=== PATIENT | female | born 1985 | race Caucasian/White ===

== ENCOUNTER 2018-04-16 17:10 | Emergency (ER) | payer BC, SELFPAY ==
[2018-04-16] VITALS (18 sets, daily range): BP systolic 105–152; BP diastolic 66–93; PULSE 64–106; RESP 11–27; TEMP 36.2–37.5; O2SAT 95–100
--- NOTE | 2018-04-16 17:28 | W.ED.GENAD ---
Discharge Plan Disposition Patient Disposition: HOME Discharge Details Chief Complaint: Allergic Clinical Impression: Bee sting Reason For Visit: BEE STING Primary Care Provider: Sally Owens ED Provider: Nick Styles Home Meds and New Rx's Prescriptions: New prednisone 20 mg tablet 60 mg PO DAILY 3 Days Qty: 9 RF: 0 Continue epinephrine [EpiPen 2-Marcial] 0.3 MG/0.3 ML auto-injector 0.3 mg IM PRN PRN (Reason: Allergy Symptoms) Qty: 1 RF: 0 Discharge Instructions Additional Instructions: follow up with your primary care provider within a 2 weeks if you have itching you can take benadryl return to the emergency department if you have difficulty breathing, severe abdominal pain, persistent vomit, or throat swelling after using your epi pen Discharge Data Discharge Physician: Nick Styles Medical Decision Making MDM Narrative Medical decision making narrative: 33 yo female who denies chornic medical problems comes in with chief complaint of bee sting. She states it happened tonight and started to have itching in her arm pits. She has no diffuse urticaria, clear lungs, no gi symptoms and no throat swelling and no stridor or drooling so doubt anaphylaxis. Will give steroids as she already took benadryl and monitor pt remains stable at this time, no respiratory or gi symptoms. Will d/c, she states her epi pen is so will prescribe this and have her f/u with pcp, return precautions Differential Diagnosis been sting, allg rxn, anaphylaxis HPI - General Adult General Mode of arrival: ambulatory. Date/Time Provider Initiated Documentation: 04/16/18 17:27. Limitations to Documentation: no limitations. Information obtained by: patient. History of Present Illness 33 year old F presents to the emergency department with the chief complaint of bee sting to right forearm, described as moderate, with intensity rated at 3. Quality is described as other (itching), and is localized to the right and upper extremity. Patient started experiencing this hour(s) (1) and it has been constant. No relieving factors improve symptom(s), No exacerbating factors reported . Patient notes no other symptoms.. Patient did receive the following treatments prior to arrival, other (50mg benadryl) Related Data Previous Rx's Medication Instructions Recorded epinephrine [EpiPen 2-Marcial] 0.3 mg IM PRN PRN #1 ml 04/16/18 prednisone 60 mg PO DAILY 3 Days #9 tab 04/16/18 Allergies Allergy/AdvReac Type Severity Reaction Status Date / Time Sulfa (Sulfonamide AdvReac Intermediate Hives Unverified 04/16/18 17:23 Antibiotics) BEE STINGS Allergy Unknown Uncoded 04/16/18 17:23 General Stated Complaint: Allergic DANNA: 3 Review of Systems Review of Systems All systems reviewed & are unremarkable except as noted in HPI and below Constitutional Denies chills, Denies fever(s) and Denies weakness Eyes Patient Denies loss of vision ENT Denies change in voice Cardiovascular Denies chest pain and Denies dyspnea Respiratory Denies dyspnea Gastrointestinal Denies abdominal pain, Denies nausea and Denies vomiting Genitourinary Denies dysuria Musculoskeletal Denies joint swelling Neurologic Denies loss of vision and Denies weakness Psychiatric Denies depression Endocrine Denies cold intolerance and Denies heat intolerance PFSH Medical History Ashkenazi Christian ancestry Social History Smoking/Tobacco Use Status: Current-Occasional Exam Const General: no acute distress Orientation: alert HENMT Head: normal to inspection Ears: external ears normal General nose exam: external nose normal Mouth: moist mucous membranes Eyes General: appearance normal, both eyes and all related structures Neck Neck: normal visual inspection Resp Effort & Inspection: normal respiratory effort and able to speak in complete sentences Cardio Rate: regular rate Skin General skin exam: other (2cm mild erythema to posterior mid right forearm where bee stung her) Neuro General: alert and oriented x3 Extrem General: normal to inspection Psych Mental Status: mental status grossly normal Course Vital Signs Temperature 37.5 C 04/16/18 17:10 Pulse 94 H 04/16/18 17:10 Respiratory Rate 16 04/16/18 17:10 Blood Pressure 152/93 H 04/16/18 17:10 Pulse Oximetry 97 04/16/18 17:10 Temperature 37.5 C 04/16/18 17:10 Pulse 94 H 04/16/18 17:10 Respiratory Rate 16 04/16/18 17:10 Blood Pressure 152/93 H 04/16/18 17:10 Pulse Oximetry 97 04/16/18 17:10
[2018-04-16] MEDS: Dexamethasone 10 MG/ML VIAL (17:35)
--- NOTE | 2018-04-16 17:40 | NUR.NOTE ---
Nursing Note:10 mg dexamethasone liquid given orally per MD order. Medication did not cross over, so overrode. Medication did not show up on patient's MAR, so unable to scan. Administered. Patient given call morales and advised to report any change in condition immediately.
== END 2018-04-16 19:13 | disposition home or self-care (01) ==
PROVIDERS: Emergency Provider Emergency Medicine; PCP Naturopath
DX: T63.441A Toxic effect of venom of bees, accidental (unintentional), initial encounter (principal); L29.9 Pruritus, unspecified; Z91.030 Bee allergy status
CPT/HCPCS: 99283; J1100

== ENCOUNTER 2018-06-11 15:01 | Outpatient (CLI) | payer SELFPAY ==
--- NOTE | 2018-06-11 16:06 | DI.US_ITS ---
SYMPTOM/DIAGNOSIS: ? ECTOPIC, CONFIRM IUP, ? AGE OBSTETRICAL ULTRASOUND: Routine examination was performed. There is a single living intrauterine gestation. Estimated sonographic age is 7 weeks 2 days based on crown/rump length. The yolk sac was visualized and is unremarkable. heart rate is 153 beats/minute, The right ovary was visualized transabdominally and is grossly unremarkable. The left ovary was not identified during the examination. The maternal left renal pelvis is mildly prominent. IMPRESSION: Single living intrauterine gestation, estimated sonographic age is 7 weeks 2 days. Many abnormalities cannot be diagnosed. A normal exam does not exclude a congenital anomaly. Radiology No. [id number] LMP: Aug 2016 patient . Exam Date: 06/11/18 [facility] wks days on EDC ([facility]) Confirmed: HISTORY: ---- PREDICTED GESTATIONAL AGE NUMBER weeks with a range of week to weeks. 1 Determined by___1STUS___LMP___HISTORY Info. pertaining to fetus # PLACENTA PRESENTATION Grade Cephalic___ Anterior___Posterior___ Breech____ Right Left Transverse(head right___ Fundal___Low-lying___Previa___ Transverse(head left___ Varying BIOMETRY AMNIOTIC FLUID BPD: mm weeks Normal HC: mm weeks Oligo Polyhydramnios AC: mm weeks FL: mm weeks AMNIOTIC FLUID INDEX >26 WK CRL: 12 mm 7 +2 weeks Cisterna Magna: mm CI: RUQ: LUQ Cerebellum: cm EFW: grams Percentile RLQ: LLQ Total: cms Composite AGE= yolk sac 4 mm, 7+2 wks EDC by US__01/26/2019 BIOPHYSICAL PROFILE ANATOMY IDENTIFIED SCORE 0/2 Heart: 4-Chamber___Rate:BPM_153____ LVOT: RVOT: Amniotic Fluid(>2cms)____ Stomach: Kidneys: Respirations (>30 secs) Bladder: Post. Fossa: Body Flex/Extension 3 vessel cord: Ventricles: cord insertion: Lips:____ Extremity Flex/Extension spinal morphology: Nose: Total Score= Palate: NS=not seen
== END 2018-06-11 15:21 ==
PROVIDERS: PCP Naturopath; Visit Provider Nurse Practitioner Adult Health
DX: Z34.91 Encounter for supervision of normal pregnancy, unspecified, first trimester (principal)
CPT/HCPCS: 76817

== ENCOUNTER 2018-09-07 00:37 | Outpatient (CLI) | payer BC, SELFPAY ==
--- NOTE | 2018-09-07 13:00 | DI.US_ITS ---
SYMPTOMS/DIAGNOSIS: KELLI 01/26/19, UNKNOWN LAST MENSTRUAL PERIOD, , ROUTINE ANATOMY SCAN OB ULTRASOUND: Many abnormalities cannot be diagnosed. A normal exam does not exclude a congenital anomaly. Radiology No. [id number] LMP: 04/21/18 Exam Date: 09/07/18 [facility] wks days on EDC ([facility]) 01/26/19 Confirmed: HISTORY: PREDICTED GESTATIONAL AGE NUMBER 19+6 weeks with a range of 18+6 weeks to 20+6 weeks. 1 Determined by_X__1ST US___LMP___HISTORY PLACENTA PRESENTATION Grade 0-I Cephalic___ Anterior___Posterior_X__ Breech____ Right Left Transverse(head right___ Fundal___Low-lying_X__Previa___ Transverse(head left___ Varying__X____ BIOMETRY AMNIOTIC FLUID BPD: 47 mm 20+1 weeks Normal HC: 183 mm 20+5 weeks AC: 152 mm 20+3 weeks FL: 32 mm 19+6 weeks AMNIOTIC FLUID INDEX >26 WK CRL: mm weeks Cisterna Magna: 3.6 mm CI: 82 RUQ: LUQ Cerebellum: 2.1 cm EFW: 339 grams Percentile: 79th RLQ: LLQ Total: cms Composite AGE= 20+2 wks EDC by US: 01/23/19 BIOPHYSICAL PROFILE ANATOMY IDENTIFIED SCORE 0/2 Heart: 4-Chamber_X__Rate:BPM 149 LVOT:____X RVOT:__X Amniotic Fluid(>2cms)____ Stomach:___X____ Kidneys:___X____ Respirations (>30 secs) Bladder:___X Post. Fossa:___X Body Flex/Extension 3-vessel cord:___X____Ventricles:____X Cord insertion:__X___ Lips:__X__ Extremity Flex/Extension Spinal morphology:___X Nose:__X__ Total Score= Palate:___X____ NS=not seen COMMENTS: The fetus was variable position during the exam. The placenta is posterior and low lying, measuring 2 cm from the internal os. The biometric measurements correspond to 20 weeks 2 days and an EDC of January,. The amount of amniotic fluid appears normal. No abnormalities are seen. IMPRESSION: Borderline low-lying placenta.
== END 2018-09-07 00:57 ==
PROVIDERS: PCP Naturopath; Visit Provider Midwife
DX: Z34.92 Encounter for supervision of normal pregnancy, unspecified, second trimester (principal); O44.42 Low lying placenta NOS or without hemorrhage, second trimester
CPT/HCPCS: 76805

== ENCOUNTER 2019-03-21 18:53 | Emergency (ER) | payer BC, SELFPAY ==
--- NOTE | 2019-03-21 19:52 | NUR.NOTE ---
Nursing Note:pt was sitting in lobby not sure if she wanted to be seen because she was starting to feel better. Pt was mowing in tight jeans today and got into something that she had an allergic reaction to. Pt took cold shower at home and 75 mg of benadryl. Pt has welts on legs and arms and initially face. pt denies SOB or any swelling in mouth or throat at this time. pt is sitting in lobby with and 8 month old. This nurse saw pt x 2 over the 45 min she was sitting there deciding and welts were getting better. Pt left without being triage or seen. pt was speaking in full sentences and other than itching no apparent distress.
== END 2019-03-21 19:52 | disposition other institution (70) ==
LOC: ER 19:09
PROVIDERS: Emergency Provider Physician Assistant; PCP Naturopath
DX: Z53.21 Procedure and treatment not carried out due to patient leaving prior to being seen by health care provider (principal)

== ENCOUNTER 2020-10-09 03:10 | Outpatient (CLI) | payer BC, SELFPAY ==
[2020-10-09 11:59] LABS: Hemoglobin A1C 5.1 % (<5.7)
[2020-10-09 12:43] LABS: Calculated LDL 118 mg/dL (<100); Cholesterol 220 mg/dL (<200); HDL Cholesterol 64 mg/dL (40-60); Triglyceride 194 mg/dL (<150)
== END 2020-10-09 03:11 | disposition home or self-care (01) ==
LOC: LBO 03:10
PROVIDERS: PCP Naturopath; Visit Provider Naturopath
DX: Z00.00 Encounter for general adult medical examination without abnormal findings (principal); Z13.220 Encounter for screening for lipoid disorders; Z13.1 Encounter for screening for diabetes mellitus
CPT/HCPCS: 36415; 80061; 83036

== ENCOUNTER 2023-01-09 02:15 | Outpatient (CLI) | payer BC, SELFPAY ==
[2023-01-09 14:35] LABS: Abs Immature Grans 0.02 10^3/uL (0.0-0.06); Absolute Basophil Count 0.04 10^3/uL (0.0-0.2); Absolute Eosinophil Count 0.14 10^3/uL (0.0-0.7); Absolute Monocyte Count 0.57 10^3/uL (0.1-0.8); Absolute Neutrophil Count 6.21 10^3/uL (1.2-6.7); Basophils % 0.5; Eosinophils % 1.6; HGB 12.9 g/dL (11.2-15.7); Immature Grans % 0.2; Lymphocytes % 20.5; MCHC 33.1 % (32.0-36.0); MCV 82 fL (80-95); MPV 9.9 fL (8.0-11.0); Monocytes % 6.5; Neutrophils % 70.7; Platelet Count 230 10^3/uL (130-400); RBC 4.77 10^6/uL (3.93-5.22); RDW 11.9 % (11.7-14.6); RDW-SD 35.5 fL; WBC 8.78 10^3/uL (4.4-10.8)
[2023-01-12 09:28] LABS: Hepatitis B Surface Ag Negative (Negative)
[2023-01-12 09:53] LABS: Varicella IgG Antibody Positive (See Note)
[2023-01-12 09:56] LABS: Rubella IgG Ab (UVM) Positive (See Note)
[2023-01-12 10:17] LABS: HIV-1/2 Ag & Ab Screen Negative (Negative)
[2023-01-12 10:30] LABS: Hepatitis C Ab w Rflx HCV PCR Negative (Negative)
[2023-01-13 19:52] LABS: Syphilis IgG w/Reflex Nonreactive (Nonreactive)
== END 2023-01-09 02:16 | disposition home or self-care (01) ==
LOC: LBO 02:15
PROVIDERS: PCP Naturopath; Visit Provider Advanced Practice Midwife
DX: Z34.91 Encounter for supervision of normal pregnancy, unspecified, first trimester (principal); Z3A.11 11 weeks gestation of pregnancy; Z33.3 Pregnant state, gestational carrier
CPT/HCPCS: 36415; 86787; 86803; 86850; 86900; 86901; 87340; 87389; 85025; 86762; 86780

== ENCOUNTER 2023-01-09 14:32 | Outpatient (REF) | payer BC, SELFPAY ==
[2023-01-09 17:31] LABS: *AMPHETAMINES SCREEN URINE Negative (Negative); *BARBITURATES SCREEN URINE Negative (Negative); *BENZODIAZEPINES SCREEN URINE Negative (Negative); Cannabinoids THC Negative (Negative); Cocaine Screen,Urine Negative (Negative); METHADONE URINE SCREEN Negative (Negative); OPIATES URINE SCREEN Negative (Negative)
[2023-01-09 17:32] LABS: Tricyclic Antidepressants Negative (Negative)
[2023-01-19 03:18] LABS: Buprenorphine Negative ng/mL (Cutoff: 5.0); Norbuprenorphine Negative ng/mL (Cutoff: 2.5)
== END 2023-01-09 14:33 | disposition home or self-care (01) ==
LOC: LBN 14:32
PROVIDERS: Advanced Practice Midwife; PCP Naturopath; Visit Provider Obstetrics & Gynecology Gynecology
DX: Z34.91 Encounter for supervision of normal pregnancy, unspecified, first trimester (principal)
CPT/HCPCS: 80307; 80348; 87077; 87086; 87186

== ENCOUNTER 2023-01-21 03:27 | Outpatient (CLI) | payer BC, SELFPAY ==
[2023-01-21 14:32] LABS: Panorama Kit Sent via Fed Ex
[2023-01-30 14:32] LABS: Specimen WB Whole Blood
[2023-02-02 23:37] LABS: Result Summary NEGATIVE; Specimen WB Whole Blood
== END 2023-01-21 03:28 | disposition home or self-care (01) ==
LOC: LBO 03:27
PROVIDERS: PCP Naturopath; Visit Provider Advanced Practice Midwife
DX: Z34.90 Encounter for supervision of normal pregnancy, unspecified, unspecified trimester (principal); O99.891 Other specified diseases and conditions complicating pregnancy; E84.9 Cystic fibrosis, unspecified
CPT/HCPCS: 36415; 81220; 81222; 81329

== ENCOUNTER 2023-02-05 11:05 | Outpatient (REF) | payer BC, SELFPAY ==
[2023-02-06 13:25] LABS: Chlamydia Result Negative (Negative); GC Result Negative (Negative)
== END 2023-02-05 11:06 | disposition home or self-care (01) ==
LOC: LBN 11:05
PROVIDERS: PCP Naturopath; Visit Provider Advanced Practice Midwife
DX: Z34.92 Encounter for supervision of normal pregnancy, unspecified, second trimester (principal); Z3A.15 15 weeks gestation of pregnancy
CPT/HCPCS: 87491; 87591

== ENCOUNTER 2023-03-06 16:29 | Outpatient (REF) | payer BC, SELFPAY | END 2023-03-06 16:30 | disposition home or self-care (01) | LOC: LBN 16:29 | PROVIDERS: PCP Naturopath; Visit Provider Internal Medicine Interventional Cardiology | DX: O23.42 Unspecified infection of urinary tract in pregnancy, second trimester (principal); Z3A.19 19 weeks gestation of pregnancy | CPT/HCPCS: 87086 ==

== ENCOUNTER 2023-03-06 20:04 | Outpatient (CLI) | payer BC, SELFPAY ==
[2023-03-10 14:27] LABS: AFP 48.2 ng/mL; Cigarette smoking status non-Smoker; GA used in risk estimate Scan estimate; IVF Pregnancy No; Initial or repeat testing Initial testing; Insulin dependent diabetes No; Maternal Weight 181 lbs; Number of Fetuses 1; Prev Pregnancy w/NTD No; RECOMMENDED FOLLOW UP None.; Results Summary Normal risk
== END 2023-03-06 20:05 | disposition home or self-care (01) ==
LOC: LBO 20:04
PROVIDERS: PCP Naturopath; Visit Provider Advanced Practice Midwife
DX: Z34.92 Encounter for supervision of normal pregnancy, unspecified, second trimester (principal); Z3A.19 19 weeks gestation of pregnancy; Z36.89 Encounter for other specified antenatal screening
CPT/HCPCS: 36415; 82105

== ENCOUNTER 2023-03-30 05:03 | Outpatient (CLI) | payer BC, SELFPAY ==
[2023-03-30 12:30] LABS: Abs Immature Grans 0.05 10^3/uL (0.0-0.06); Absolute Basophil Count 0.06 10^3/uL (0.0-0.2); Absolute Eosinophil Count 0.16 10^3/uL (0.0-0.7); Absolute Monocyte Count 0.61 10^3/uL (0.1-0.8); Absolute Neutrophil Count 7.94 10^3/uL (1.2-6.7); Basophils % 0.6; Eosinophils % 1.5; HCT 37.1 % (36.0-46.0); HGB 12.1 g/dL (11.2-15.7); Immature Grans % 0.5; Lymphocytes % 16.9; MCH 27.1 pg (27.0-33.0); MCHC 32.6 % (32.0-36.0); MCV 83 fL (80-95); MPV 9.8 fL (8.0-11.0); Monocytes % 5.7; Neutrophils % 74.8; Platelet Count 245 10^3/uL (130-400); RBC 4.46 10^6/uL (3.93-5.22); RDW 12.9 % (11.7-14.6); RDW-SD 39.2 fL; WBC 10.62 10^3/uL (4.4-10.8)
[2023-03-30 13:25] LABS: Ferritin 24 ng/mL (8-252)
== END 2023-03-30 05:04 | disposition home or self-care (01) ==
LOC: LBO 05:03
PROVIDERS: PCP Naturopath; Visit Provider Midwife
DX: Z34.82 Encounter for supervision of other normal pregnancy, second trimester (principal); Z36.89 Encounter for other specified antenatal screening; Z3A.22 22 weeks gestation of pregnancy
CPT/HCPCS: 36415; 82728; 85025

== ENCOUNTER 2023-06-10 06:54 | Observation (INO) | payer BC, SELFPAY ==
[2023-06-10] VITALS (15 sets, daily range): BP systolic 126–170; BP diastolic 66–97; PULSE 83–115; RESP 7–23; TEMP 35.7–36.7; O2SAT 100
--- NOTE | 2023-06-10 07:17 | W.ED.GENAD ---
Discharge Plan Disposition Patient Disposition: Admit to [facility] Condition: Stable Discharge Details Clinical Impression: Vaginal bleeding during , Low lying placenta with hemorrhage, antepartum Admit Date/Time: 06/10/23 07:41 Admit Provider: Judith Oh Attending Provider: Judith Oh Primary Care Provider: Sally Owens ED Provider: Anupama Zafar Medical Decision Making Emergent evaluation of vaginal bleeding in third trimester . Initial differential includes placenta previa, placental abruption, early labor. The patient does not have any signs or symptoms concerning for labor. I reviewed her medical record and noted that she does have a low-lying placenta with prior hemorrhage. She is followed by half backer here. On my initial evaluation her blood pressure is noted to be slightly elevated. She has no history of hypertension. After my initial evaluation, I contacted OB on-call. She recommended admission to the center. I have sent lab work to evaluate for anemia, preeclampsia, HELLP syndrome. Patient taken up stairs prior to lab results. Medical Records Medical records reviewed: Yes I reviewed the patient's medical records. Medical records narrative: Specific Issues/Plans 1. IVF with donor egg, Korey is bio-dad, Embryo transfer 11/11/22 2. Previous home x3, Divya Velazquez is LM/director of emergency nursing 3. cfDNA=low probability x3, CF screen on [facility] neg. AFP at 19 wks= nml risk for NTD 4. Records release signed for PAP from PCP and dating US/viability from [facility] 5. Reports wt loss 30lb, BMI of 31 is not reflective of BMI at time of transfer, declines early glucola 6. Considering low dose ASA, egg donor was 28 yrs old, declines 7. AMA - level 2 US & MFM consult @ [facility] [place] [facility] [place] for [place]12[place]23 8. UTI with E.Coli, Rx sent 01/21/23, CHELSEY in 4-6 wks on 03/06/23=neg 9. Weigh only @ 22, 28 and 36 wk appt's. Pt will self report weights otherwise. 10. Declines LC consult with Fredis. Plans to pump milk for dads to feed. 11. Low lying placenta at [facility] [place] [place]; repeated @ 32 wks @ [facility]: Placenta tip 1.3 cms from os. 11a. Transvaginal US at [facility] [place] @ 36 wks with MFM consult ____ Lab Data Lab results reviewed: Yes I reviewed the patient's lab results. Lab results narrative: HGB stable. HPI General Date/Time Provider Initiated Documentation: 06/10/23 06:58. Limitations to Documentation: no limitations. Information obtained by: patient and old records reviewed. HPI Narrative: 38-year-old female G4, P3 at 33 weeks presents with vaginal bleeding. Reports that she woke up this morning and noted blood in the bed. She went to the bathroom and noted that there was blood in the toilet. She is unable to determine if there were blood clots. She denies any pain or cramping. She notes that she was just recently diagnosed with a low-lying placenta. She reports that she went for a jog yesterday but otherwise has had no new activities. She reports that she still feels active movement. Related Data Home Medications Medication Instructions Recorded Confirmed epinephrine 0.3 mg/0.3 mL 0.3 mg (0.3 mL) IM PRN PRN Allergy 04/16/18 06/10/23 injection, auto-injector (EpiPen Symptoms #1 mL 2-Marcial) vitamin no.102-iron 90 1 cap PO DAILY 01/09/23 06/10/23 mg-folate 1 mg-dha 200 mg capsule cholecalciferol (vitamin D3) 10 10 mcg PO DAILY 04/03/23 06/10/23 mcg (400 unit) capsule omega-3 fatty acids 1,000 mg 1,000 mg PO DAILY 04/03/23 06/10/23 capsule Previous Rx's Medication Instructions Recorded epinephrine 0.3 mg/0.3 mL 0.3 mg (0.3 mL) IM PRN PRN Allergy 04/16/18 injection, auto-injector (EpiPen Symptoms #1 mL 2-Marcial) Allergies Allergy/AdvReac Type Severity Reaction Status Date / Time Sulfa (Sulfonamide AdvReac Intermediate Hives Unverified 06/10/23 07:04 Antibiotics) BEE STINGS Allergy Unknown Uncoded 06/10/23 07:04 General 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 PFSH All Active Problems (Updated 06/10/23 @ 08:09 by Anupama Zafar MD) Vaginal bleeding during (Acute) Low lying placenta with hemorrhage, antepartum (Acute) Urinary tract infection during (Acute) resulting from in-vitro fertilization (Acute) Surrogate (Acute) Advanced maternal age (AMA) in (Acute) (Acute) Medical History Right ACL tear Ashkenazi Yazidism ancestry Family History Maternal Grandmother Diabetes Paternal Grandmother Diabetes Maternal Grandfather Diabetes Paternal Grandfather Diabetes Father Cancer bladder Social History Smoking/Tobacco Use Status: Never Smoking risk assessment performed?: Yes Alcohol Intake: never Drug use: Occasionally Substance use type: does not use Adopted: No Household members: spouse and children Housing: house Number of Children: 3 Communication Needs: None Do you need help understanding health information?: Never Pets and animals: No Sexually active: Yes Do you think of yourself as: straight/heterosexual Do you feel safe in your relationship?: Yes History History 4 Para 3 Hx # Term Pregnancies 3 Multiple births 0 Hx # Pregnancies 0 Ectopic pregnancies 0 AB induced 0 Hx Number of Living Children 3 AB spontaneous 0 Past Pregnancies Del. Date GA/Weeks # Preg Succ Route Wgt Sex Labor Lgth Anesthesia Location Prov [facility] 01/01/16 39 No Yes vaginal 2721.554 g Female 24 Home [facility] 07/10/17 39 No Yes vaginal 3175.147 g Male 12 Home [facility] 01/24/19 39 No Yes vaginal 3628.739 g Male 12 Home [facility] Delivery Date: 01/01/16 Last Updated by: Chyna Fonseca CNM Monica, healthy, no complications, reports she stalls in labor for 1-2 hours each labor and prefers patience Delivery Date: 07/10/17 Last Updated by: Chyna Barron CNM Benjamen, GBS Delivery Date: 01/24/19 Last Updated by: Chyna Fonseca CNM Kwaku Exam Narrative Exam Narrative: Review of Systems: All systems reviewed & are unremarkable except as noted in HPI and below: CONSTITUTIONAL: Alert and oriented Well-developed, tearful HEENT: NACT EYES: PERRL, no conjunctival injection EARS: no external abnormality NOSE nares patent MOUTH Moist MM NECK: Symmetric, trachea midline, No thyromegaly THROAT oropharynx clear CVS: RRR, No murmurs or gallops. Peripheral pulses 2+ and equal in all extremities Brisk capillary refill in all extremities. No peripheral edema RESP: Unlabored respiratory effort, Clear to auscultation bilaterally No wheezes rales or rhonchi GI: Soft, Nontender, gravid abdomen heart rate 172. Bedside ultrasound performed, confirmed heart rate and active movement : External inspection performed with nursing supervisor beehive kiln, blood noted in the perineal area without active bleeding from the vagina. Bimanual examination performed, unable to palpate os, there was blood on my glove clot or tissue noted MSK: Extremities with full range of motion, no deformity or TTP SKIN: Warm, Dry. No rashes or lesions. NEURO: No focal neurologic deficits. Course Vital Signs Vital signs: Vital Signs Temperature 35.7 C L 06/10/23 07:00 Pulse 114 H 06/10/23 07:00 Respiratory Rate 23 06/10/23 07:00 Blood Pressure 170/88 H 06/10/23 07:00 Pulse Oximetry 100 06/10/23 07:00 Temperature 35.7 C L 06/10/23 07:00 Temperature Source Temporal Artery Scan 06/10/23 07:00 Pulse 114 H 06/10/23 07:00 Respiratory Rate 23 06/10/23 07:00 Respiratory Effort Normal, Non-Labored 06/10/23 07:03 Blood Pressure 170/88 H 06/10/23 07:00 Blood Pressure Position Supine 06/10/23 07:00 Pulse Oximetry 100 06/10/23 07:00 Oxygen Delivery Method Room Air 06/10/23 07:00 Oxygen Flow Rate 0 06/10/23 07:00 Pain Level 0 06/10/23 07:06
[2023-06-10 07:29] LABS: Source Nasal/Nares
[2023-06-10 07:33] LABS: Abs Immature Grans 0.06 10^3/uL (0.0-0.06); Absolute Basophil Count 0.06 10^3/uL (0.0-0.2); Absolute Eosinophil Count 0.37 10^3/uL (0.0-0.7); Absolute Lymphocyte Count 2.12 10^3/uL (1.2-3.4); Absolute Monocyte Count 0.77 10^3/uL (0.1-0.8); Absolute Neutrophil Count 7.07 10^3/uL (1.2-6.7); Basophils % 0.6; Eosinophils % 3.5; HCT 36.5 % (36.0-46.0); HGB 11.9 g/dL (11.2-15.7); Immature Grans % 0.6; Lymphocytes % 20.3; MCH 27.4 pg (27.0-33.0); MCHC 32.6 % (32.0-36.0); MCV 84 fL (80-95); MPV 9.8 fL (8.0-11.0); Monocytes % 7.4; Neutrophils % 67.6; Platelet Count 195 10^3/uL (130-400); RBC 4.34 10^6/uL (3.93-5.22); RDW 12.5 % (11.7-14.6); RDW-SD 38.1 fL; WBC 10.45 10^3/uL (4.4-10.8)
[2023-06-10 07:48] LABS: Prothrombin Time 9.9 sec (9.1-11.1)
[2023-06-10 07:49] LABS: Bilirubin Negative (Negative); Blood Large (Negative); Clarity Sl Cloudy (Clear); Glucose Negative (Negative); Ketones Negative (Negative); Leukocyte Esterase Negative (Negative); Nitrite Negative (Negative); Specific Gravity >= 1.030 (1.005-1.025); Urobilinogen 0.2 mg/dL (Up to 0.2); pH 5.5 (5-8)
[2023-06-10 07:50] LABS: ALT 24 U/L (14-59); AST 18 U/L (15-37); Albumin 2.9 g/dL (3.4-5.0); Alkaline Phosphatase 56 U/L (46-116); Anion Gap 11.9 mmol/L (3-11); BUN 15 mg/dL (7-18); Bilirubin, Total 0.6 mg/dL (0.2-1.0); CO2 21.1 mmol/L (21.0-32.0); CREATININE 0.7 mg/dL (0.55-1.02); Calcium 8.6 mg/dL (8.5-10.1); Chloride 102 mmol/L (98-107); Estimated GFR 113.46 (mL/min/1.73m2); Glucose 108 mg/dL (74-106); Potassium 3.3 mmol/L (3.5-5.1); Sodium 135 mmol/L (136-145); Total Protein 6.6 g/dL (6.4-8.2)
[2023-06-10 07:55] LABS: Bacteria Rare HPF (Negative); Epithelial Cells Few HPF (Negative); RBC 20-50 HPF (0-2); WBC 0-2 HPF (0-5)
[2023-06-10 07:56] LABS: C & S Indicated? No/Sq. Contamination; Casts Negative LPF (Negative); Crystals Negative HPF (Negative); Mucus Trace (Negative)
[2023-06-10 07:58] LABS: COMMENT (LAB VIEW ONLY) 175.02 mg/dL
[2023-06-10 08:06] LABS: COVID-19 PCR Negative (Negative)
--- NOTE | 2023-06-10 09:45 | W.PM.DS.N ---
Date of service: 06/10/23 Time of Service: 09:45 DS: Diagnosis Discharge Diagnosis (1) Low lying placenta with hemorrhage, antepartum: Status: Acute (2) resulting from in-vitro fertilization: Status: Acute (3) Surrogate : Status: Acute (4) Placental abruption in third trimester: Status: Acute Discharge Plan Disposition Patient Disposition: Transfer-Acute Inpatient Care Specific Acute Inpt Facility: [facility] Condition: Stable Condition: Stable Discharge Details Reason For Visit: IUP with Bleeding Admit Date/Time: 06/10/23 08:04 Admit Provider: Judith Oh Attending Provider: Judith Oh Primary Care Provider: Sally Owens [facility] Course Hospital Course: Patient is a 38-year-old G4, P3 female who has been cared for by the CNM service at [facility]. She is a gestational carrier with a donor egg and in vitro fertilization of biologic father. Her KELLI is based on embryonic age at the time of transfer. She presented to the emergency department early this morning with bright red blood per vagina. She described passage of clots without pain. No precipitating event. Patient has been followed for a low-lying placenta and recently underwent a evaluation at [facility] where the placental tip was approximately 1.3 cm from the cervical os. Sterile look speculum exam showed internal os closed, organized clots in the external os which was approximately 2 cm dilated. Currently no bright red blood noted from the internal os. heart rate category 1 no evidence of decelerations. No evidence of contractions on external tocometer. MFM at [facility] was contacted and patient was excepted in transfer for access to intensive care unit. She received 12 mg of betamethasone IM prior to discharge. She will be transported via ambulance. Home Meds and New Rx's Prescriptions: No Action PNV [id number] 90 mg iron- 1 mg-200 mg capsule 1 cap PO DAILY cholecalciferol (vitamin D3) 10 mcg (400 unit) capsule 10 mcg PO DAILY omega-3 fatty acids 1,000 mg capsule 1,000 mg PO DAILY epinephrine [EpiPen 2-Marcial] 0.3 MG/0.3 ML auto-injector 0.3 mg IM PRN PRN (Reason: Allergy Symptoms) Qty: 1 0RF Discharge Instructions Activity:: Modified bedrest Equipment/Supplies:: Lactated Ringer's Diet:: N.p.o. DS: Summary Time Spent with Patient providing and/or coordinating discharge services: Greater than 30 minutes Status at Discharge Functional status at discharge: bed bound Overall status at discharge: patient is not back to baseline Mental Status: mental status grossly normal Speech and Movement: speech and movement normal Mood: anxious mood Affect: sad Exam Narrative Exam Narrative: Patient tearful. She is contacted the biologic father's notified them of the need for transfer to [facility]. Many questions regarding the length of stay at [facility]. Const General: anxious Nutritional Appearance: obese Orientation: alert, awake and oriented x3 Neck Neck: normal visual inspection Resp Effort & Inspection: normal respiratory effort Auscultation: clear to auscultation bilaterally Cardio Rate: regular rate Rhythm: regular rhythm GI Other: Gravid bedside ultrasound showed monique IUP in breech position patient with vertex in the maternal left upper quadrant. heart rate 130s with category 1 tracing General: other (Speculum exam as above. GBS was not collected) Skin General skin exam: no rashes or lesions noted Extrem General: normal to inspection Psych Appearance: grossly normal Mental Status: mental status grossly normal Speech and Movement: speech and movement normal Mood: anxious mood Affect: sad Attitude: cooperative Thought Process: normal Thought Content: normal Insight: insight good Judgment: judgment good DS: Data Vitals/I&O Vitals and I&O: Vital Signs Temperature 98.1 F 06/10/23 08:19 Temperature 98.1 F 06/10/23 08:18 Temperature Source Temporal Artery Scan 06/10/23 07:00 Pulse 96 H 06/10/23 08:23 Pulse 89 06/10/23 08:18 Pulse 90 06/10/23 07:31 Respiratory Rate 16 06/10/23 08:19 Respiratory Effort Normal, Non-Labored 06/10/23 07:03 Blood Pressure 126/69 06/10/23 08:19 Blood Pressure 126/69 06/10/23 08:18 Blood Pressure Mean 85 06/10/23 07:30 Blood Pressure Position Supine 06/10/23 07:00 Pulse Oximetry 100 06/10/23 08:23 Oxygen Delivery Method Room Air 06/10/23 08:19 Oxygen Flow Rate 0 06/10/23 08:19 Pain Level 0 06/10/23 07:06 Intake & Output 06/09/23 06/09/23 06/10/23 11:59 23:59 11:59 Intake Total Balance Weight 6.702 oz Intake: IV Data Completed and Pending Labs on day of discharge: Labs from last 24 hours 06/10/23 06/10/23 06/10/23 07:39 07:26 07:20 WBC 10.45 RBC 4.34 Hgb 11.9 Hct 36.5 MCV 84 MCH 27.4 MCHC 32.6 RDW 12.5 Plt Count 195 MPV 9.8 Immature Gran % 0.6 Neutrophils % 67.6 Lymphocytes % 20.3 Monocytes % 7.4 Eosinophils % 3.5 Basophils % 0.6 Nucleated RBC % 0.0 Absolute Neutrophils 7.07 H Absolute Lymphocytes 2.12 Absolute Monocytes 0.77 Absolute Eosinophils 0.37 Absolute Basophils 0.06 PT 9.9 INR 1.0 Sodium 135 L Potassium 3.3 L Chloride 102 Carbon Dioxide 21.1 Anion Gap 11.9 H BUN 15 Creatinine 0.7 Est GFR (CKD-EPI 2020) 113.46 Glucose 108 H Calcium 8.6 Total Bilirubin 0.6 AST 18 ALT 24 Alkaline Phosphatase 56 Total Protein 6.6 Albumin 2.9 L Urine Color Yellow Urine Clarity Sl Cloudy Urine pH 5.5 Ur Specific [place] >= 1.030 H Urine Protein 30 H Urine Ketones Negative Urine Blood Large H Urine Nitrite Negative Urine Bilirubin Negative Urine Urobilinogen 0.2 Ur Leukocyte Esterase Negative Urine RBC 20-50 H Urine WBC 0-2 Ur Epithelial Cells Few Urine Crystals Negative Urine Bacteria Rare Urine Casts Negative Urine Mucus Trace Ur Culture Indicated? No/Sq. Contamination Ur Random Creatinine 175.02 U Random Total Protein 36.0 U [place] Prot/Creat Ratio 0.20 Urine Glucose Negative COVID-19 Source Nasal/Nares SARS-CoV-2 (PCR) Negative Patient ABO/Rh B Positive Antibody Screen NEGATIVE PFSH All Active Problems (Updated 06/10/23 @ 09:46 by Judith Oh MD) Placental abruption in third trimester (Acute) Vaginal bleeding during (Acute) Low lying placenta with hemorrhage, antepartum (Acute) Urinary tract infection during (Acute) resulting from in-vitro fertilization (Acute) Surrogate (Acute) Advanced maternal age (AMA) in (Acute) (Acute) Medical History Right ACL tear Ashkenazi Confucianism ancestry Family History Maternal Grandmother Diabetes Paternal Grandmother Diabetes Maternal Grandfather Diabetes Paternal Grandfather Diabetes Father Cancer bladder Social History Smoking/Tobacco Use Status: Never Smoking risk assessment performed?: Yes Alcohol Intake: never Drug use: Occasionally Substance use type: does not use Adopted: No Household members: spouse and children Housing: house Number of Children: 3 Communication Needs: None Do you need help understanding health information?: Never Pets and animals: No Sexually active: Yes Do you think of yourself as: straight/heterosexual Do you feel safe in your relationship?: Yes History History 4 Para 3 Hx # Term Pregnancies 3 Multiple births 0 Hx # Pregnancies 0 Ectopic pregnancies 0 AB induced 0 Hx Number of Living Children 3 AB spontaneous 0 Past Pregnancies Del. 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 Delivery Date: 01/01/16 Last Updated by: Chyna Fonseca CNM Monica, healthy, no complications, reports she stalls in labor for 1-2 hours each labor and prefers patience Delivery Date: 07/10/17 Last Updated by: Chyna Barron CNM Benjamen, GBS Delivery Date: 01/24/19 Last Updated by: COCO Barger Time Spent with Patient Time Spent with Patient: 45-69 minutes Time was spent: preparing to see the patient(eg.review tests), obtaining and/or reviewing separately otained hiistory, ordering medications,tests, procedures, referring, communicating with other health resident care technician, counseling the patient and care coordination
[2023-06-10] MEDS: Betamet Acet/Betamet Na Ph Inj. 30 MG/5 ML 12 MG IM (09:57)
[2023-06-10] MEDS: Normal Saline Flush 10 ML SYR IVP (10:18)
[2023-06-10] MEDS: Lactated Ringers 1,000 ML 150 ML IV (10:18)
--- NOTE | 2023-06-10 12:39 | HPE_ITS ---
Date of service: 06/10/23 Time of Service: 12:40 Assessment and Plan Assessment and plan (1) Placental abruption in third trimester: Status: Acute Assessment and plan: Patient has consented to transfer to tertiary care center secondary to prematurity and proximity to a higher level of care. She will receive 12 mg of betamethasone IM prior to discharge via ambulance to the [facility]. (2) Vaginal bleeding during : Status: Acute OB-HPI Labor/Delivery History of Present Illness Reason for Visit: IUP with Bleeding Chief Complaint: Vaginal Bleeding , Associated Signs and Symptoms of Vaginal Bleeding: Dark red blood in vaginal vault. clots at ext os.. KELLI Calculator Estimated Delivery Date Method Current WG Current Estimate 07/29/23 Manual 33w 0d transfer da te 11/11/22 History of Present Expected Delivery Route/Plan - CNM Gestational carrier: Makenzie Curry & Korey Waters, live in [place] support team: pt's duran Crouch BB no circ, fetus name Anny Specific Issues/Plan 1. IVF with donor egg, Korey is bio-dad, Embryo transfer 11/11/22 2. 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 cfDNA=low probability x3, CF screen on Aicha neg. AFP at 19 wks= nml risk for NTD 4. Records release signed for PAP from PCP and dating US/viability from [facility] 5. Reports wt loss 30lb, BMI of 31 is not reflective of BMI at time of transfer, declines early glucola 6. Considering low dose ASA, egg donor was 28 yrs old, declines 7. AMA - level 2 US & MFM consult @ [facility] scheduled for 03/12/23 8. UTI with E.Coli, Rx sent 01/21/23, CHELSEY in 4-6 wks on 03/06/23=neg 9. Weigh only @ 22, 28 and 36 wk appt's. Pt will self report weights otherwise. 10. Declines LC consult with Fredis. Plans to pump milk for dads to feed. 11. Low lying placenta at [facility]; repeated @ 32 wks @ [facility]: Placenta tip 1.3 cms from os. 11a. Transvaginal US at [facility] @ 36 wks with MFM consult ____ Narrative: Patient is a 38-year-old G4, P3 female who has been cared for by the CNM service at [facility]. She is a gestational carrier with a donor egg and in vitro fertilization of biologic father. Her KELLI is based on embryonic age at the time of transfer. She presented to the emergency department early this morning with bright red blood per vagina. She described passage of clots without pain. No precipitating event. Patient has been followed for a low-lying placenta and recently underwent a evaluation at [facility] where the placental tip was approximately 1.3 cm from the cervical os. Sterile look speculum exam showed internal os closed, organized clots in the external os which was approximately 2 cm dilated. Currently no bright red blood noted from the internal os. heart rate category 1 no evidence of decelerations. No evidence of contractions on external tocometer. MFM at [facility] was contacted and patient was excepted in transfer. She received 12 mg of betamethasone IM prior to discharge. She will be transported via ambulance. Informed Consent Informed Consent: Other (transport to [facility]) Review of Systems All systems reviewed & are unremarkable except as noted in HPI and below PFSH All Active Problems (Updated 06/10/23 @ 09:46 by Judith Oh MD) Placental abruption in third trimester (Acute) Vaginal bleeding during (Acute) Low lying placenta with hemorrhage, antepartum (Acute) Urinary tract infection during (Acute) resulting from in-vitro fertilization (Acute) Surrogate (Acute) Advanced maternal age (AMA) in (Acute) (Acute) Medical History Right ACL tear Ashkenazi Moravian ancestry Family History Maternal Grandmother Diabetes Paternal Grandmother Diabetes Maternal Grandfather Diabetes Paternal Grandfather Diabetes Father Cancer bladder Social History Smoking/Tobacco Use Status: Never Smoking risk assessment performed?: Yes Alcohol Intake: never Drug use: Occasionally Substance use type: does not use Adopted: No Household members: spouse and children Housing: house Number of Children: 3 Communication Needs: None Do you need help understanding health information?: Never Pets and animals: No Sexually active: Yes Do you think of yourself as: straight/heterosexual Do you feel safe in your relationship?: Yes History History 4 Para 3 Hx # Term Pregnancies 3 Multiple births 0 Hx # Pregnancies 0 Ectopic pregnancies 0 AB induced 0 Hx Number of Living Children 3 AB spontaneous 0 Past Pregnancies Del. 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 07/10/17 39 No Yes vaginal 7 lb Male 12 Home chuckie h bottom hoop driver 01/24/19 39 No Yes vaginal 8 lb Male 12 Home chuckie h bottom hoop driver Delivery Date: 01/01/16 Last Updated by: Chyna Fonseca CNM Monica, healthy, no complications, reports she stalls in labor for 1-2 hours each labor and prefers patience Delivery Date: 07/10/17 Last Updated by: Chyna Barron CNM Benjamen, GBS Delivery Date: 01/24/19 Last Updated by: Chyna Fonseca CNM Kwaku Meds Allergies and Home Medications Allergies Allergy/AdvReac Type Severity Reaction Status Date / Time Sulfa (Sulfonamide AdvReac Intermediate Hives Unverified 06/10/23 07:04 Antibiotics) BEE STINGS Allergy Unknown Uncoded 06/10/23 07:04 Home Medications Medication Instructions Recorded Confirmed Type epinephrine 0.3 mg/0.3 mL 0.3 mg (0.3 mL) IM PRN PRN Allergy 04/16/18 06/10/23 Rx injection, auto-injector (EpiPen Symptoms #1 mL 2-Marcial) vitamin no.102-iron 90 1 cap PO DAILY 01/09/23 06/10/23 History mg-folate 1 mg-dha 200 mg capsule cholecalciferol (vitamin D3) 10 10 mcg PO DAILY 04/03/23 06/10/23 History mcg (400 unit) capsule omega-3 fatty acids 1,000 mg 1,000 mg PO DAILY 04/03/23 06/10/23 History capsule Exam Physical Exam Vital signs: Temp Pulse Resp BP Pulse Ox 98.1 F 88 16 137/66 100 06/10/23 10:01 06/10/23 10:01 06/10/23 10:01 06/10/23 10:01 06/10/23 08:23 Vital Signs Reviewed: Yes Constitutional Constitutional: mild distress Detailed Labor and Delivery Exam Dilation: 0 Effacement (%): 0 station: -3 Position: Other Cervix position: mid Reid Score: Cervical Points Exam 0 1 2 3 Dilation Closed 1-2cm 3-4 cm 5-6cm Effacement 0-30% 40-50% 60-70% 80% Consistency Firm Medium Soft Station -3 -2 -1,0 +1,+2 Position Posterior Mid Anterior Amniotic Membrane Status: Intact Contraction Frequency(min): none Fetus A Heart Rate Baseline: 140 Monitor Accelerations: 10 X 10 Monitor Decelerations: None Variability: Moderate (6-25 BPM) Presentation: Breech Categories: Category I HEENT Exam HEENT Exam: Normal Neck Exam Neck Exam: Normal Chest/Brest/Axilla Exam Chest Exam: Not Done Breast Exam Breast Exam: Not Done Respiratory Exam Respiratory Exam: Normal Cardiovascular Exam Cardiovascular Exam: Normal Abdominal Exam Abdominal Exam: Normal (gravid. no focal tenderness) Rectal Exam Rectal Exam: Not Done Exam Exam: Abnormal (as above.) Extremities Exam Extremities Exam: Normal Back/Spine/Pelvis Exam Back Exam: Normal Skin Exam Skin Exam: Normal Neurological Exam Neurological Exam: Normal Psychiatric Exam Psychiatric Exam: Normal Results Results Group Beta Strep: Not Done Blood Type: B+ Abnormal Lab Findings: Abnormal Labs 06/10/23 06/10/23 07:20 07:39 Absolute Neutrophils 7.07 H Sodium 135 L Potassium 3.3 L Anion Gap 11.9 H Glucose 108 H Albumin 2.9 L Ur Specific [place] >= 1.030 H Urine Protein 30 H Urine Blood Large H Urine RBC 20-50 H Risk Assessment Risk for Shoulder Dystocia Historical/Initial OB: NEGATIVE FOR: Pelvic Abnormality, Pre- BMI>30, Previous Shoulder Dystocia or Previous Macrosomia Date/Initial: 01/09/23 JERMAIN Risk for Pre-Eclampsia Date Initiated/Initials: 01/09/23: JERMAIN Yes, if one or more: NEGATIVE FOR: Hx Pre-E/Gest HTN, Chronic HTN, Multiple Gestation, Pre-gestational DM, Renal Disease, Systemic Lupus or APA Syndrome Yes, if 2 or more: POSITIVE FOR: Age>= 35 yrs and BMI>30 Risks Reviewed Risks Reviewed Upon Admission: Yes
== END 2023-06-10 10:50 | disposition short-term general hospital (02) ==
LOC: ER 06:59 → OBS 08:09
PROVIDERS: Admitting Provider Obstetrics & Gynecology Gynecology; Emergency Provider Emergency Medicine; PCP Naturopath; Visit Provider Obstetrics & Gynecology Gynecology
DX: O44.53 Low lying placenta with hemorrhage, third trimester (principal); O45.93 Premature separation of placenta, unspecified, third trimester; Z3A.33 33 weeks gestation of pregnancy; Z33.3 Pregnant state, gestational carrier; O09.523 Supervision of elderly multigravida, third trimester; O09.813 Supervision of pregnancy resulting from assisted reproductive technology, third trimester
CPT/HCPCS: 80053; 86850; 86900; 86901; 87635; 81003; 81015; 82565; 84156; 85025; 85610; G0378; J0702

== ENCOUNTER 2023-06-18 13:30 | Outpatient (CLI) | payer BC, SELFPAY ==
[2023-06-18 13:41] VITALS: BP 130/66; PULSE 92; TEMP 36.9
--- NOTE | 2023-06-18 14:40 | W.OBNST ---
Date of service: 06/18/23 Time of Service: 14:30 NST Evaluation Reason for NST Reasons for Nonstress Test: OTHER, SEE COMMENT Reason for NST Other: hx of vaginal bleeding in 3rd trimester Gestational Age Gestational Age in Weeks and Days: 34 Weeks and 1Days Test and Monitor Explained Test/Monitor Explained: Test Explained, Monitor Explained and Patient Verbalized Understanding Vital Signs Blood Pressure: 130/66 Pulse: 92 Temperature: 98.4 F NST Information Date on Monitor: 06/18/23 Time on Monitor: 13:32 Date off Monitor: 06/18/23 Time off Monitor: 13:52 Total Time on Monitor: 20 NST Interventions: None Contraction Frequency: x1 NST Evaluation Patient States Movement: Present FHR Baseline: 130 Variability: Moderate 6-25 bpm Accelerations: 15x15 Decelerations: None NST Results: Reactive Note Ultrasound Done: N/A. NST Note Note: NST is reactive and reassuring. Will have weekly NST's. NST Reviewed and Verified by: Chyna Fonseca
[2023-06-18 14:42] VITALS: BP 130/66; PULSE 92; TEMP 36.9
== END 2023-06-18 13:58 ==
LOC: BCD 13:31 → OBS 13:38
PROVIDERS: PCP Naturopath; Visit Provider Advanced Practice Midwife
DX: O46.93 Antepartum hemorrhage, unspecified, third trimester (principal); Z3A.34 34 weeks gestation of pregnancy; Z33.3 Pregnant state, gestational carrier; O09.523 Supervision of elderly multigravida, third trimester
CPT/HCPCS: 59025

== ENCOUNTER 2023-06-26 04:49 | Outpatient (CLI) | payer BC, SELFPAY ==
[2023-06-26 15:27] VITALS: BP 105/57; PULSE 96; TEMP 36.8
[2023-06-26 15:29] VITALS: BP 105/57; PULSE 96
--- NOTE | 2023-07-27 12:02 | W.OBNST ---
Date of service: 06/26/23 Time of Service: 16:00 NST Evaluation Reason for NST Reasons for Nonstress Test: ADVANCED MATERNAL AGE Gestational Age Gestational Age in Weeks and Days: 39 Weeks and 0Days Test and Monitor Explained Test/Monitor Explained: Test Explained and Patient Verbalized Understanding Vital Signs Blood Pressure: 105/57 Pulse: 96 Temperature: 98.2 F NST Information Date on Monitor: 06/26/23 Time on Monitor: 15:31 Date off Monitor: 06/26/23 Time off Monitor: 16:00 Total Time on Monitor: 29 NST Interventions: None NST Evaluation Patient States Movement: Present FHR Baseline: 130 Variability: Moderate 6-25 bpm Accelerations: 15x15 Decelerations: None NST Results: Reactive Note Ultrasound Done: N/A. NST Note Note: NST is reactive and reassuring. NST Reviewed and Verified by: Chyna Fonseca
[2023-07-27 12:03] VITALS: BP 105/57; PULSE 96; TEMP 36.8
== END 2023-06-26 16:38 ==
LOC: BCD 04:50 → OBS 15:19
PROVIDERS: PCP Naturopath; Visit Provider Advanced Practice Midwife
DX: O09.523 Supervision of elderly multigravida, third trimester (principal); Z3A.39 39 weeks gestation of pregnancy
CPT/HCPCS: 59025

== ENCOUNTER 2023-07-01 10:08 | Outpatient (CLI) | payer BC, SELFPAY ==
[2023-07-01 11:47] VITALS: BP 102/63; PULSE 86; TEMP 36.8
[2023-07-01 11:48] VITALS: BP 105/63; PULSE 86
--- NOTE | 2023-07-01 12:34 | W.OBNST ---
Date of service: 07/01/23 Time of Service: 12:34 NST Evaluation Reason for NST Reasons for Nonstress Test: ADVANCED MATERNAL AGE Gestational Age Gestational Age in Weeks and Days: 36 Weeks and 0Days Test and Monitor Explained Test/Monitor Explained: Test Explained and Monitor Explained Vital Signs Blood Pressure: 102/63 Pulse: 86 Temperature: 98.2 F NST Information Time on Monitor: 11:54 Date off Monitor: 07/01/23 Time off Monitor: 12:21 NST Interventions: None NST Evaluation Patient States Movement: Present FHR Baseline: 130 Variability: Moderate 6-25 bpm Accelerations: 15x15 Decelerations: None NST Results: Reactive Note Ultrasound Done: N/A. NST Note Note: Aicha is here for weekly NST. [place] [facility] [place] and placenta is now 2 cms from os with clot visualized. Cleared for delivery at [facility]. Vertex presentation confirmed. Return to Center for NST in one week. NST Reviewed and Verified by: Chyna Barron
[2023-07-01 12:36] VITALS: BP 102/63; PULSE 86; TEMP 36.8
== END 2023-07-01 12:26 ==
LOC: BCD 10:08 → OBS 11:41
PROVIDERS: PCP Naturopath; Visit Provider Advanced Practice Midwife
DX: O09.523 Supervision of elderly multigravida, third trimester (principal); Z3A.36 36 weeks gestation of pregnancy
CPT/HCPCS: 59025

== ENCOUNTER 2023-07-08 08:15 | Outpatient (CLI) | payer BC, SELFPAY ==
[2023-07-08 09:13] VITALS: BP 120/66; PULSE 99; TEMP 36.4
--- NOTE | 2023-07-08 09:31 | W.OBNST ---
Date of service: 07/08/23 Time of Service: 09:31 NST Evaluation Reason for NST Reasons for Nonstress Test: OTHER, SEE COMMENT Reason for NST Other: IVF - Gestational carrier Gestational Age Gestational Age in Weeks and Days: 37 Weeks and 0Days Test and Monitor Explained Test/Monitor Explained: Test Explained, Monitor Explained and Patient Verbalized Understanding Vital Signs Blood Pressure: 120/66 Pulse: 99 Temperature: 97.5 F NST Information Date on Monitor: 07/08/23 Time on Monitor: 09:00 Date off Monitor: 07/08/23 Time off Monitor: 09:20 Total Time on Monitor: 20 NST Interventions: Notify Provider Contraction Frequency: 0 NST Evaluation Patient States Movement: Present FHR Baseline: 145 Variability: Moderate 6-25 bpm Accelerations: 15x15 Decelerations: None NST Results: Reactive Note Ultrasound Done: Presentation (VTX presentation) Coding for Presentation w/NST: Completed Exam. NST Note Note: NST is reactive and reassuring. Baby is ROP, discussed belly forward positions. POCUS shows VTX. will return 07/15/for NST. JERMAIN NST Reviewed and Verified by: Chyna Fonseca
[2023-07-08 09:33] VITALS: BP 120/66; PULSE 99; TEMP 36.4
== END 2023-07-08 09:30 | disposition home or self-care (01) ==
LOC: BCD 08:29 → OBS 09:04
PROVIDERS: PCP Naturopath; Visit Provider Advanced Practice Midwife
DX: O09.813 Supervision of pregnancy resulting from assisted reproductive technology, third trimester (principal); Z33.3 Pregnant state, gestational carrier; Z3A.37 37 weeks gestation of pregnancy
CPT/HCPCS: 59025

== ENCOUNTER 2023-07-15 07:55 | Outpatient (CLI) | payer BC, SELFPAY ==
[2023-07-15 08:59] VITALS: BP 125/74; PULSE 83; TEMP 36.9
[2023-07-15 09:05] VITALS: BP 125/74; PULSE 83
[2023-07-15 10:26] VITALS: BP 117/71; PULSE 93
--- NOTE | 2023-07-15 10:59 | W.OBNST ---
Date of service: 07/15/23 Time of Service: 10:59 NST Evaluation Reason for NST Reasons for Nonstress Test: OTHER, SEE COMMENT Reason for NST Other: well being gestational carrier Gestational Age Gestational Age in Weeks and Days: 38 Weeks and 0Days Test and Monitor Explained Test/Monitor Explained: Test Explained Vital Signs Blood Pressure: 125/74 Pulse: 83 Temperature: 98.4 F NST Information Date on Monitor: 07/15/23 Time on Monitor: 08:50 Date off Monitor: 07/15/23 Time off Monitor: 09:38 Total Time on Monitor: 48 NST Interventions: None NST Evaluation Patient States Movement: Present FHR Baseline: 130 Variability: Moderate 6-25 bpm Accelerations: 15x15 Decelerations: None NST Results: Reactive Note Ultrasound Done: N/A. NST Note Note: RTO 1 wk for next NST and induction scheduling plan cvx 1-2/thick posterior, firm, cephalic presentation but OOP NST Reviewed and Verified by: Janett Hernández
[2023-07-15 11:00] VITALS: BP 125/74; PULSE 83; TEMP 36.9
== END 2023-07-15 09:54 ==
LOC: BCD 08:04 → OBS 08:44
PROVIDERS: PCP Naturopath; Visit Provider Advanced Practice Midwife
DX: O09.813 Supervision of pregnancy resulting from assisted reproductive technology, third trimester (principal); Z33.3 Pregnant state, gestational carrier; Z3A.39 39 weeks gestation of pregnancy
CPT/HCPCS: 59025

== ENCOUNTER 2023-07-22 07:17 | Outpatient (CLI) | payer BC, SELFPAY ==
[2023-07-22 08:45] VITALS: BP 127/70; PULSE 90; TEMP 36.6
--- NOTE | 2023-07-22 10:05 | W.OBNST ---
Date of service: 07/22/23 Time of Service: 10:05 NST Evaluation Reason for NST Reasons for Nonstress Test: OTHER, SEE COMMENT Reason for NST Other: Third trimester bleeding Gestational Age Gestational Age in Weeks and Days: 39 Weeks and 0Days Test and Monitor Explained Test/Monitor Explained: Test Explained, Monitor Explained and Patient Verbalized Understanding Vital Signs Blood Pressure: 127/70 Pulse: 90 Temperature: 97.9 F Urine Results Urine Protein: Negative Urine Ketones: Negative Urine Glucose: Negative Urine Blood: Negative NST Information Date on Monitor: 07/22/23 Time on Monitor: 08:39 Date off Monitor: 07/22/23 Time off Monitor: 09:03 Total Time on Monitor: 24 NST Interventions: Reposition Patient and Notify Provider Contraction Frequency: 0 NST Evaluation Patient States Movement: Present FHR Baseline: 130 Variability: Absent Accelerations: 15x15 Decelerations: None NST Results: Reactive Note Ultrasound Done: N/A. NST Note Note: Aicha is here with the baby's fathers for weekly NST. She denies contractions. She requested a cervical exam. Cervix 1/-4/soft/ ballotable. scant sargent-brown discharge. Aicha had an IOL scheduled for today but she has changed her mind and she hopes to go into labor spontaneously before her due date. I recommended calling in 5 days and speaking with Lynn who will be government relations manager to confirm an induction date. She was placed on the schedule for Thursday. Signs of labor reviewed. NST Reviewed and Verified by: Chyna Barron
[2023-07-22 10:10] VITALS: BP 127/70; PULSE 90; TEMP 36.6
== END 2023-07-22 09:30 ==
LOC: BCD 07:17 → OBS 08:43
PROVIDERS: PCP Naturopath; Visit Provider Advanced Practice Midwife
DX: O26.853 Spotting complicating pregnancy, third trimester (principal); Z3A.39 39 weeks gestation of pregnancy
CPT/HCPCS: 59025

== ENCOUNTER 2023-07-28 03:05 | Inpatient (IN) | payer BC, SELFPAY ==
[2023-07-28] VITALS (229 sets, daily range): BP systolic 87–129; BP diastolic 36–84; PULSE 0–157; RESP 14–27; TEMP 36.4–38.4; O2SAT 96–100
--- NOTE | 2023-07-28 03:36 | HPE_ITS ---
Date of service: 07/28/23 Time of Service: 03:36 Assessment and Plan Assessment and plan (1) PROM with onset of labor within 24 hours of rupture: Status: Acute Assessment and plan: A: 38 yo @ 39+6 wks, PROM @ 2200 on 07/27, clear fluid, spontaneous labor s/p low lying placenta & marginal abruption @ 33 wks, GBS+ @ [facility] [place], placenta @ 2 cm from os on 36 wk scan Early decels noted on EFM, periods of min variability vs moderate; Gestational carrier and IVF , AMA P: Admit to center, T&S, CBC, IV access and PCN prophylaxis Hydration and ambulation, repeat EFM tracing Pt attended by , duran, & intended parents Anticipate Qualifiers: PROM gestational age: full term Qualified Code(s): O42.02 - Full-term premature rupture of membranes, onset of labor within 24 hours of rupture (2) Group B Streptococcus carrier, +RV culture, currently : Status: Acute OB-HPI Labor/Delivery History of Present Illness Reason for Visit: term labor Chief Complaint: Uterine Contractions; Suspected Rupture of Membranes , Associated Signs and Symptoms of Suspected ROM: large gush of water @ 2200. KELLI Calculator Estimated Delivery Date Method Current WG Current Estimate 07/29/23 Manual 39w 6d transfer da te 11/11/22 History of Present Expected Delivery Route/Plan - CNM Gestational carrier: Makenzie Curry & Korey Waters, live in [place] support team: pt's duran Crouch BB no circ, fetus name [place] GBS POSITIVE at [facility] [place] 33 wks, will treat in labor, pt declines repeat swab Plans to keep placenta IOL 39-40 weeks recommended by MFM, weekly NST's Specific Issues/Plan 1. IVF with donor egg, Korey is bio-dad, Embryo transfer 11/11/22 2. Previous home x3, Divya Velazquez is JULIETTE/duran 3. cfDNA=low probability x3, CF screen on Aicha neg. AFP at 19 wks= nml risk for NTD 4. Records release signed for PAP from PCP and dating US/viability from [facility] 5. Reports wt loss 30lb, BMI of 31 is not reflective of BMI at time of transfer, declines early glucola 6. Considering low dose ASA, egg donor was 28 yrs old, declines 7. AMA - level 2 US & MFM consult @ [facility] [place] scheduled for 03/12/23 8. UTI with E.Coli, Rx sent 01/21/23, CHELSEY in 4-6 wks on 03/06/23=neg 9. Weigh only @ 22, 28 and 36 wk appt's. Pt will self report weights otherwise. 10. Declines LC consult with Fredis. Plans to pump milk for dads to feed. 11. Low lying placenta at [facility] [place]; repeated @ 32 wks @ [facility]: Placenta tip 1.3 cms from os. 11a. Vaginal bleeding and transfer to [facility] [place] 06/10, received TDAP and flu vaccine there 11b. Transvaginal US at [facility] [place] @ 36 wks with MFM consult - placenta 2 cms from os and vaginal delivery at [facility] indicated Assessment: History Reviewed & Current Review of Systems Narrative: ROS noncontributory other than HIP PFSH All Active Problems (Updated 07/28/23 @ 04:37 by Janett Hernández) PROM with onset of labor within 24 hours of rupture (Acute) Group B Streptococcus carrier, +RV culture, currently (Acute) Placental abruption in third trimester (Acute) Low lying placenta with hemorrhage, antepartum (Acute) resulting from in-vitro fertilization (Acute) Surrogate (Acute) Advanced maternal age (AMA) in (Acute) (Acute) Medical History (Updated 07/28/23 @ 04:37 by Janett Hernández) Vaginal bleeding during Urinary tract infection during Right ACL tear Ashkenazi Mu-Is[employer] ancestry Family History Maternal Grandmother Diabetes Paternal Grandmother Diabetes Maternal Grandfather Diabetes Paternal Grandfather Diabetes Father Cancer bladder Social History Smoking/Tobacco Use Status: Never Smoking risk assessment performed?: Yes Alcohol Intake: never Drug use: Occasionally Substance use type: does not use Adopted: No Household members: spouse and children Housing: house Number of Children: 3 Communication Needs: None Do you need help understanding health information?: Never Pets and animals: No Sexually active: Yes Do you think of yourself as: straight/heterosexual Do you feel safe in your relationship?: Yes History History 4 Para 3 Hx # Term Pregnancies 3 Multiple births 0 Hx # Pregnancies 0 Ectopic pregnancies 0 AB induced 0 Hx Number of Living Children 3 AB spontaneous 0 Past Pregnancies Del. Date GA/Weeks # Preg Succ Route Wgt Sex Labor Lgth Anesth esia Location 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 Delivery Date: 01/01/16 Last Updated by: Chyna Fonseca CNM Monica, healthy, no complications, reports she stalls in labor for 1-2 hours each labor and prefers patience Delivery Date: 07/10/17 Last Updated by: Chyna Barron CNM Benjamen, GBS Delivery Date: 01/24/19 Last Updated by: Chyna Fonseca CNM Kwaku Meds Allergies and Home Medications Allergies Allergy/AdvReac Type Severity Reaction Status Date / Time Sulfa (Sulfonamide AdvReac Intermediate Hives Verified 07/08/23 09:27 Antibiotics) BEE STINGS Allergy Unknown Uncoded 07/08/23 09:27 Home Medications Medication Instructions Recorded Confirmed Type epinephrine 0.3 mg/0.3 mL 0.3 mg (0.3 mL) IM PRN PRN Allergy 04/16/18 07/22/23 Rx injection, auto-injector (EpiPen Symptoms #1 mL 2-Marcial) vitamin no.102-iron 90 1 cap PO DAILY 01/09/23 07/22/23 History mg-folate 1 mg-dha 200 mg capsule cholecalciferol (vitamin D3) 10 10 mcg PO DAILY 04/03/23 07/22/23 History mcg (400 unit) capsule omega-3 fatty acids 1,000 mg 1,000 mg PO DAILY 04/03/23 07/22/23 History capsule Exam Physical Exam Vital signs: Pulse BP 87 113/70 07/28/23 03:32 07/28/23 03:32 Vital Signs Reviewed: Yes Narrative: 113/70, 80, 98.0 Constitutional Constitutional: moderate distress, average body habitus and cooperative Detailed Labor and Delivery Exam Dilation: 5 Effacement (%): 50 station: -4 Cervix position: posterior Consistency: medium FINNEGAN Score(Cervical Ripeness Score): 5 Amniotic Membrane Status: Ruptured Rupture Method: Spontaneous Amniotic Fluid: Clear Ferning: Present Contraction Frequency(min): q2-4 min Contraction Duration(sec): 60-70 Contraction Intensity: Moderate Fetus A Heart Rate Baseline: 135 Monitor Decelerations: Early Variability: Moderate (6-25 BPM) Categories: Category I Est. Weight: 8 lb 6.041 oz Est. Weight: 3800 gms Date of Membrane Rupture: 07/27/23 Time of Membrane Rupture: 22:00 HEENT Exam HEENT Exam: Normal Neck Exam Neck Exam: Normal Chest/Brest/Axilla Exam Chest Exam: Normal Breast Exam Breast Exam: Not Done Respiratory Exam Respiratory Exam: Normal Cardiovascular Exam Cardiovascular Exam: Normal Abdominal Exam Abdominal Exam: Normal (soft, nontender) Rectal Exam Rectal Exam: Normal Exam Exam: Normal Extremities Exam Extremities Exam: Normal Back/Spine/Pelvis Exam Back Exam: Normal Pelvis Adequate: Yes (proven to 8 lbs) Skin Exam Skin Exam: Normal Neurological Exam Neurological Exam: Normal Psychiatric Exam Psychiatric Exam: Normal Results Results Group Beta Strep: Positive Blood Type: B+ Rubella Status: Immune Varicella Immunity: Immune Risk Assessment Risk for Shoulder Dystocia Historical/Initial OB: NEGATIVE FOR: Pelvic Abnormality, Pre- BMI>30, Previous Shoulder Dystocia or Previous Macrosomia 40 Weeks: NEGATIVE FOR: EFW> 4500 gms, Maternal Weight Gain >40lb or Post Dates Increased Risk?: No Date/Initial: 01/09/23 Delivery Plan @ 40 wks: Risk for Pre-Eclampsia Date Initiated/Initials: 01/09/23: Yes, if one or more: NEGATIVE FOR: Hx Pre-E/Gest HTN, Chronic HTN, Multiple Gestation, Pre-gestational DM, Renal Disease, Systemic Lupus or APA Syndrome Yes, if 2 or more: POSITIVE FOR: Age>= 35 yrs and BMI>30 Risk for Post- Hemorrhage Initial: NEGATIVE FOR: Multiple Gestation, Previous PPH, Known Clotting Deficiency, Grand Multiparity or Anticoagulation 36 Weeks: NEGATIVE FOR: Anemia, hgb<10, Low platelets(thrombocytopenia), Gestational HTN or Pre-E, Polyhydraminios or EFW>4500gms At Risk?: Yes (subchorionic bleed @ 33 wks that resolved, placenta 2 cm from os) Counseled re: Active Management: Yes Risks Reviewed Risks Reviewed Upon Admission: Yes
[2023-07-28 03:56] LABS: HCT 37.8 % (36.0-46.0); HGB 12.4 g/dL (11.2-15.7); MCH 27.9 pg (27.0-33.0); MCHC 32.8 % (32.0-36.0); MCV 85 fL (80-95); Platelet Count 217 10^3/uL (130-400); RBC 4.44 10^6/uL (3.93-5.22); RDW 12.5 % (11.7-14.6); RDW-SD 38.3 fL; WBC 15.43 10^3/uL (4.4-10.8)
[2023-07-28] MEDS: Penicillin G POT. 5,000,000 UNITS in Normal Saline 100 ML 200 UNITS IVPB (04:40)
--- NOTE | 2023-07-28 07:27 | PGE_ITS ---
Date of service: 07/28/23 Time of Service: 07:27 Informed Consent Informed Consent: Augmentation of Labor Contractions Monitor Mode: External Contraction Frequency(min): 2 in 10 minutes Intensity: Mild/Moderate Fetus A Monitor: Doppler Heart Rate Baseline: 125 FHR Rhythm: Regular Characteristics: Normal Amniotic Membrane Status: Ruptured Assessment and Plan Assessment and plan (1) PROM with onset of labor within 24 hours of rupture: Status: Acute Assessment and plan: A: PROM x10 hrs, labor pattern has diminished Multipara with IVF surrogate GBS prophylaxis q 4 hrs P: Will discuss pitocin augmentation Dr. Oh available for consultation Anticipate Qualifiers: PROM gestational age: full term Qualified Code(s): O42.02 - Full-term premature rupture of membranes, onset of labor within 24 hours of rupture (2) Group B Streptococcus carrier, +RV culture, currently : Status: Acute Objective Vital Signs Reviewed: Yes Objective Narrative Objective Narrative: Initially on arrival contractions were moderately strong and regular Pt was coping well, effective support from and director of community life Has ambulated, tried some spinning-babies techniques, then napped Small amount of bloody vaginal mucous noted by nurse x1 Pt interested in considering pitocin augmentation Received Ampicillin 2 gm IV at home and PCN G 5K units after admission Vital signs stable, pt in good spirits Subjective Interval history since last seen: Contractions have diminished, now less often and not as strong. Was able to sle ep for an hour or two. Is feeling hungry for some breakfast.
[2023-07-28] MEDS: Normal Saline Flush 10 ML SYR IVP (07:39)
[2023-07-28] MEDS: Lactated Ringers 1,000 ML 125 ML IV (07:39)
[2023-07-28] MEDS: Penicillin G POT. 3,000,000 UNITS in Normal Saline 50 ML 100 UNITS IVPB ×2 (08:27→12:55)
[2023-07-28] MEDS: Oxytocin/Normal Saline 30 UNIT/500 ML BAG 2 UNITS IV (09:24)
--- NOTE | 2023-07-28 12:24 | NUR.NOTE ---
Nursing Note:FSE applied by Lynn Hernández at 1206. Pt returned to hands and kneed in bed after FSE applied. TOCO not applied. PT requests bat tub use. FSE disconnected from monitor and Novii plugged at 1216 with good tracing. Pt to tub with Novii in place.
--- NOTE | 2023-07-28 12:46 | W.PM.OBNL1 ---
Date of service: 07/28/23 Time of Service: 12:46 Informed Consent Informed Consent: Augmentation of Labor Pelvic Exam Dilation: 6 Effacement (%): 70 station: -3 Cervix Position: mid Consistency: medium Contractions Monitor Mode: External Contraction Frequency(min): q2-4 Intensity: Moderate/Strong Fetus A Monitor: External (US) Heart Rate Baseline: 120 Presentation: Cephalic Variability: Moderate (6-25 BPM) Categories: Category I Accelerations: Present Decelerations: Early Amniotic Membrane Status: Ruptured Assessment and Plan Assessment and plan (1) PROM with onset of labor within 24 hours of rupture: Status: Acute Assessment and plan: A: Pitocin augmentation after PROM Category 1 tracing GBS adequately prophylaxed Pt coping well with contractions, occasionally feeling urges to bear down P: Continue augmentation Monitor for progress & descent Comfort measures as pt will accept Anticipate Qualifiers: PROM gestational age: full term Qualified Code(s): O42.02 - Full-term premature rupture of membranes, onset of labor within 24 hours of rupture (2) Group B Streptococcus carrier, +RV culture, currently : Status: Acute Objective Vital Signs Reviewed: Yes Objective Narrative Objective Narrative: Pitocin augmentation begun with pt consent Now at 8 mu/min Pt vocalizing with contractions, has been moving around room Now in tub, Kimberly working well, FSE placed for positions when [place] doesn't connect 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
--- NOTE | 2023-07-28 14:35 | PLAC_PTH ---
PATIENT: Aicha Haines LOC: OBS U#:[id number] AGE/SX: 38/F ROOM: OBS.300 RE07/28/[address]: Janett Hernánedz CNM : 1985 BED: A DIS: 07/29/2023 SPEC #: [id number] RECD: 07/29/23 12:49 STATUS: CORTEZ REQ #: [id number] MONSERRAT: 07/28/23 14:[address]: Janett Hernández DEPT: Surgical Specimen RECD BY: Connie Hilario ENTERED: 07/29/23 12:49 SP TYPE: PLAC OTHR DR: Sally Owens Tissues: 1 - PLACENTA (3RD TRIMESTER) Procedures: GROSS AND MICRO LEVEL 5 Comments: [id number]
[2023-07-28] MEDS: miSOPROStol 100 MCG TAB 600 MCG PO (14:43)
[2023-07-28] MEDS: fentaNYL 100 MCG/2 ML VIAL 25 MCG IVP ×2 (14:50→15:00)
[2023-07-28] MEDS: Lactated Ringers 1,000 ML 30 ML IV (15:13)
--- NOTE | 2023-07-28 15:44 | OBVDS_ITS ---
Date of service: 07/28/23 Time of Service: 15:44 OB Labor/ Delivery Information Baby A Delivery Delivery Method: Spontaneaous Presentation: Cephalic Cephalic Position: Vertex Vertex Position: Right Occipital Anterior Breech Position: N/A Cord Description-Baby A: 3 Vessels Amniotic Fluid: Clear Estimated Blood Loss: QBL 2000 before going to OR Delivery Outcome: Liveborn Transferred: Other (to room with intended parents) Note: Pt moved between stool and bed with strong contractions and urges to push, pitocin @ 10 mu/min, category 1 tracing per Kimberly, persistent rim of cervix noted when pt got back on the bed but within 2 contractions head was on the perineum and 2nd stage huddle was not done due to imminent delivery, controlled delivery of head over intact perineum with CNM's hand over father's hands, baby to father's arms immediately, cord clamped at 60 minutes and cut by other father, infant placed skin to skin with them, strong bonding observed, apgars 8/9, weight 3485 gms. Pitocin IV bolus was initiated, brisk bleeding noted prior to delivery of placenta, please see hemorrhage narrative note, below. Providers Doctor: Judith Oh Nurse Gravity Meter Observer: Janett Hernández Nurse: Tammy Taylor Nurse: Gosia Hassan Labor/Delivery Information Number of Babies in Womb: 1 Steroids Given: None Reason Steroids Not Administered: N/A Group Beta Strep: Positive Antibiotics Administered: Yes Number of Doses of Antibiotics: 3 Rubella Status: Immune Blood Type: B+ Varicella Immunity: Immune Medication in Delivery: Pitocin IV bolus, 600 mcg misoprostel, 1 gm TXA Maternal Complications: Hemorrhage and Other (retained placental fragment) Shoulder Dystocia: No Stages of Labor Onset of Labor Date: 07/28/23 Onset of Labor Time: 19:00 Complete Dilatation Date: 07/28/23 Complete Dilatation Time: 14:22 Labor - Stage 1 Duration: -278 minutes ROM Baby A: 07/27/23 ROM Baby A: 22:00 ROM Total Time- Baby A: [id number] Infant Delivery Date-Baby A: 07/28/23 Delivery Time-Baby A: 14:24 Labor Stage 2 Duration: 2 minutes Placenta Delivery Date-Baby A: 07/28/23 Placenta Delivery Time-Baby A: 14:35 Labor-Stage 3 Duration: 11 minutes Total Length of Labor-Baby A: -276 minutes Placenta Status: Delivered Baby A Gender: Male Gestational Status: Term (39-41.6 wks) Gestational Age in Weeks/Days: 39 Weeks and 6 Days weight: 7 lb 10.93 oz Weight Comment: 3485 gms Score-1 Minute Interval(Baby A) Heart Rate-1 minute: 100 BPM or Greater Respiratory Effort- 1 minute: Spontaneous/Strong Cry Muscle Tone-1 minute: Active Movement Reflex Response-1 minute: Prompt Response Color-1 minute: Pallor or Cyanosis Total Score-1 minute: 8 Score-5 Minute Interval(Baby A) Heart Rate- 5 minute: 100 BPM or Greater Respiratory Effort-5 minute: Spontaneous/Strong Cry Muscle Tone-5 minute: Active Movement Reflex Response-5 minute: Prompt Response Color-5 minute: Bluish Hands or Feet Total Score- 5 minute: 9 Hemorrrhage Note Note Note: Delivery @ 1424, brisk bleeding noted prior to placenta delivery, pitocin bolus had been initiated and IV was patent. With fundal massage, a moment of bobbi cord traction and then grasping the placental body in the vaginal vault to avoid cord evulsion the placenta delivered via Gleason mechanism @ 1435, intermittent bright red trickling of blood persisted, fundal massage done for decreased blood flow. Careful vaginal inspection revealed no lacerations, clots manually evacuated from vaginal vault, 600 mcg misoprostel PO given @ 1443, fundus remained firm at umbilicus. Underdrape with 700 ml QBL was changed out for a new one, straight cath for 200 ml yellow urine done @ 1447. Trickling of blood continued, manual exploration of uterus done and placental fragment was palpated in the fundus that did not come loose with removal attempt. Dr. Oh was called (she was inhouse), TXA 1gm IV started @ 1450 as MD and 3rd nurse arrived, nurses requested to initiate 2nd IV line, BP 114/67 and pulse 110, QBL in 2nd drape at 600 ml. Pt coherent and conversant, explained to her that there was a retained fragment and likely will need to go to the OR, Fentanyl 25 mcg IV ordered, care of pt then turned over to Dr. Oh though CNM remained bedside to assist MD with speculum exam and Desiree placement. Hemorrhage Recognized Date Hemorrhage Recognized: 07/28/23 Time Hemorrhage Recognized: 14:30 Call for Help Date: 07/28/23 Time: 14:43 2nd RN in Room Date: 07/28/23 Time: 14:20 (3rd RN in the room by [id number] (Jessy Maloney RN)) 2nd RN: Gosia Hassan Provider in Room Date: 07/28/23 Time: 14:47 Provider: Judith Oh RN Supervisor Spring Up Notified Date: 07/28/23 Time: 14:51 RN Supervisor Spring Up on Floor Date: 07/28/23 Time: 14:54 Supervisor Spring Up: Harika PerezBL Scale in Room Date: 07/28/23 Time: 14:47 OB Emergency Cart at Bedside Date: 07/28/23 Time: 14:47 IV Site Left Forearm: Date: 07/28/23 Time: 15:05 (2nd IV) IV Catheter Gauge: 18 Crow Catheter Urinary Catheter Date of Insertion: 07/28/23 (Straight cath for 200 ml urine) Time of insertion: 14:47 Urinary Catheter Size: 14 Inserted by: Kathy Hernández CNM Medication Administration 1st Administration: Medication: Oxytocin 30U/500 ml IV Medication Other/Dose/Route: IV Administration Date: 07/28/23 Administration Time: 14:27 2nd Administration: Medication: Misoprostol 600 mcg PO Medication Other/Dose/Route: PO Administration Date: 07/28/23 Administration Time: 14:43 3rd Administration: Medication: TXA 1 gm IV Medication Other/Dose/Route: IV Administration Date: 07/28/23 Administration Time: 14:50 4th Administration: Medication: Other (Fentanyl) Medication Other/Dose/Route: IV, 25 mcg Administration Date: 07/28/23 Administration Time: 14:50 5th Administration: Medication: Other (Desiree inserted by Dr. Oh) Medication Other/Dose/Route: intrauterine Administration Date: 07/28/23 Administration Time: 14:59 Total Blood Loss for PPH Event Quantitative Blood Loss: 2,000 (prior to going to the OR) Transported to OR Date: 07/28/23 Time: 15:09
--- NOTE | 2023-07-28 16:10 | PLAC_PTH ---
PATIENT: Aicha Haines LOC: OBS U#:[id number] AGE/SX: 38/F ROOM: OBS.300 RE07/28/[address]: Janett Hernández CNM : 1985 BED: A DIS: 07/29/2023 SPEC #: [id number] RECD: 07/28/23 18:26 STATUS: CORTEZ REQ #: [id number] MONSERRAT: 07/28/23 16:[address]: Janett Hernández DEPT: Surgical Specimen RECD BY: Connie Hilario ENTERED: 07/28/23 18:28 SP TYPE: PLAC OTHR DR: Sally Owens Tissues: 1 - PLACENTA (3RD TRIMESTER) Procedures: GROSS AND MICRO LEVEL 4 Comments: [id number]
[2023-07-28] MEDS: Cellulose,Oxidized 4X8 1 PACKET MC (16:25)
[2023-07-28 16:32] LABS: HCT 33.7 % (36.0-46.0)
[2023-07-28 16:50] LABS: pH 7.22 (7.35-7.45)
[2023-07-28 16:51] LABS: BE -11 mmol/L (-2-3); HCO3 17 mmol/L (22-26); TCO2 18 mmol/L (23-27); pCO2 41 mmHg (35-45); pO2 236 mmHg (80-105); sO2 100 % (95-98)
[2023-07-28 16:53] LABS: Site Arterial Line
[2023-07-28 17:11] LABS: Anion Gap 11.4 mmol/L (3-11); BUN 14 mg/dL (7-18); CO2 19.6 mmol/L (21.0-32.0); Calcium 8.9 mg/dL (8.5-10.1); Chloride 103 mmol/L (98-107); Estimated GFR 73.95 (mL/min/1.73m2); Glucose 143 mg/dL (74-106); Potassium 4.8 mmol/L (3.5-5.1); Sodium 134 mmol/L (136-145)
[2023-07-28] MEDS: Normal Saline Flush 10 ML SYR (17:30)
--- NOTE | 2023-07-28 17:33 | W.ANESPOSTOP ---
Postoperative Evaluation Date, Time and Location Date Performed: 07/28/23 Time Performed: 17:33 Patient Location: PACU Vital Signs Most Recent Imported Vital Signs: Most Recent Vital Signs Temp Pulse Resp BP Pulse Ox 36.8 C 117 H 16 110/59 L 99 07/28/23 12:32 07/28/23 15:02 07/28/23 12:32 07/28/23 14:54 07/28/23 15:00 Assessment Mental Status: Awake (Alert & Oriented to Patient Baseline) Airway and Respiratory Function: Patent airway with normal (patient baseline) respiratory exam Cardiovascular Function: Hemodynamically Stable Hydration Status: Adequately Hydrated Nausea & Vomiting: No Nausea or Vomiting Pain: Pain is tolerable per patient Peripheral Nerve Block: Patient did not receive a nerve block
--- NOTE | 2023-07-28 18:05 | ROE_ITS ---
Date of service: 07/28/23 Time of Service: 18:05 Operative Note Operative Note DATE OF PROCEDURE: 07/28/23 PRE-OP DIAGNOSIS: hemorrhage POST-OP DIAGNOSIS: same retained placenta. submucosal fibroid PROCEDURE: Exam under anesthesia, suction evaculation of uterine contents. SURGEON: Judith Oh ANESTHESIA TYPE: General LMA/ETT Refer to Anesthesia Record ESTIMATED BLOOD LOSS: 1,300 PATHOLOGY: other (retained placenta) COMPLICATIONS: None Patient was transported to: PACU Patient's condition: stable Indications: 38 yo @ 39+6 wks, PROM @ 2200 on 07/27 with spontaneous labor and Oxytocin augmentation of labor who developed uterine bleeding after delivery of the placenta. Despite medications, fundal massage and manual exploration of the uterine performed at the bedside there continued persistent bleeding. VERA device was inserted into the uterine cavity without improvement in bleeding. Pt was consented for uterine evacuation under anesthesia Findings: Cervix dilated with blood clots. Impinging on the uterine cavity was a R sided submucosal fibroid extending from the fundus to the midportion of the uterine cavity. 5cm collection of clot and tissue was scraped off of the L uterine side wall and sent to pathology Procedure Description: Patient was taken to the operating room where she was placed in the dorsal supine position and general anesthesia was administered without difficulty. 3g ms of Ancef were administered upon arrival in the OR. She was then placed in the dorsal lithotomy position in yellowfin stirrups in a neurologically neutral position. She was then prepped, and draped in the usual sterile fashion. Surgical timeout was performed. Crow cather to gravity drainage was placed and attempt at visualization of the cervix using a speculum was unsuccessful secondary to copious blood in the vaginal vault. The cervix admitted a single gloved hand and the above noted placental fragment was located, grasped and removed. Palpation of the entire uterine cavity was then performed without further retained tissue noted. A 10mm curved suction cannula attatched to suction was inserted into the uterine cavity and the arambula of the uterine cavity were suctioned without additional tissue aspirated. A Bakri balloon was inserted into the uterine cavity and inflated with 350cc of NS. However the balloon slipped down into vagina. Another attempt at inflating the Bakri balloon with 150cc of Normal Saline resulted in the balloon slipping out of the uterine cavity. It was not reinserted. The bivalve speculum and a sidewall retractor were reinserted allowing visuali zation of the cervix and cervical os. There was not evidence of copious bleeding from the cervical os. A ring forceps was used to grasp the cervix and inspect the body of the cervix. Light bleeding was noted at 12 o'clock position on the cervx. An attempt at placing a suture for hemostasis was unsuccessful secondary to cervical tissue edema. A 4x6 inch Surgicel was placed over the cervix and left in place. Instruments were removed from her vagina and the patient placed in the dorsal supine position and awakened from anesthesia and extubated. She was transported to the recovery room in stable condition. All sponge, lap and sharps were counted and present x2.
[2023-07-28] MEDS: Oxytocin/Normal Saline 30 UNIT/500 ML BAG 95 UNITS IV (18:20)
--- NOTE | 2023-07-28 18:21 | W.ANESPOSTOP ---
Postoperative Evaluation Date, Time and Location Date Performed: 07/28/23 Time Performed: 18:16 Patient Location: PACU Vital Signs Most Recent Imported Vital Signs: Most Recent Vital Signs Temp Pulse Resp BP Pulse Ox 36.7 C 94 H 17 109/56 L 99 07/28/23 18:06 07/28/23 18:06 07/28/23 18:06 07/28/23 18:06 07/28/23 18:06 Most Recent Vital Signs Temp Pulse Resp BP Pulse Ox 36.8 C 117 H 16 110/59 L 99 07/28/23 12:32 07/28/23 15:02 07/28/23 12:32 07/28/23 14:54 07/28/23 15:00 Pain Score Most Recent Pain Score: Most Recent Pain Score Pain Level 0 07/28/23 18:06 Assessment Mental Status: Awake (Alert & Oriented to Patient Baseline) Airway and Respiratory Function: Patent airway with normal (patient baseline) respiratory exam Cardiovascular Function: Hemodynamically Stable Hydration Status: Adequately Hydrated Nausea & Vomiting: No Nausea or Vomiting Pain: Pain is tolerable per patient Peripheral Nerve Block: Patient did not receive a nerve block Postoperative Comments:: Art line discontinued. Plan to leave right IJ midline overnight in case of rapid infusion need.
[2023-07-28] MEDS: Acetaminophen 325 MG TAB 650 MG PO (18:29)
[2023-07-28] MEDS: Ibuprofen 600 MG TAB PO (19:19)
[2023-07-28] MEDS: Docusate Sodium 100 MG CAP PO (19:20)
[2023-07-28] MEDS: Hamamelis Leaf/Glycerin 100 EACH BOX PR (19:20)
[2023-07-28] MEDS: Dibucaine 1% 28 GM TUBE TP (19:20)
[2023-07-28] MEDS: Ondansetron O.D.T. 4 MG TABEF PO (23:41)
[2023-07-29] MEDS: Acetaminophen 325 MG TAB 650 MG PO ×2 (00:22→07:34)
[2023-07-29 00:27] VITALS: BP 105/55; PULSE 80; RESP 16; TEMP 37.2; O2SAT 98
[2023-07-29] MEDS: Ibuprofen 600 MG TAB PO ×2 (03:04→08:58)
[2023-07-29 03:07] VITALS: BP 107/58; PULSE 81; RESP 16; TEMP 36.6; O2SAT 98
[2023-07-29 07:01] LABS: HCT 25.4 % (36.0-46.0); HGB 8.3 g/dL (11.2-15.7); MCH 27.8 pg (27.0-33.0); MCHC 32.7 % (32.0-36.0); MCV 85 fL (80-95); MPV 10.1 fL (8.0-11.0); Platelet Count 153 10^3/uL (130-400); RBC 2.99 10^6/uL (3.93-5.22); RDW 12.6 % (11.7-14.6); RDW-SD 38.7 fL; WBC 14.48 10^3/uL (4.4-10.8)
[2023-07-29 07:24] LABS: ALT 19 U/L (14-59); AST 20 U/L (15-37); Albumin 1.9 g/dL (3.4-5.0); Alkaline Phosphatase 60 U/L (46-116); Anion Gap 8.7 mmol/L (3-11); BUN 16 mg/dL (7-18); Bilirubin, Total 0.6 mg/dL (0.2-1.0); CO2 23.3 mmol/L (21.0-32.0); CREATININE 0.9 mg/dL (0.55-1.02); Calcium 7.8 mg/dL (8.5-10.1); Chloride 107 mmol/L (98-107); Estimated GFR 83.92 (mL/min/1.73m2); Glucose 94 mg/dL (74-106); Potassium 4.3 mmol/L (3.5-5.1); Sodium 139 mmol/L (136-145); Total Protein 4.8 g/dL (6.4-8.2)
[2023-07-29 07:35] VITALS: BP 113/64; PULSE 89; RESP 16; TEMP 36.7; O2SAT 98
--- NOTE | 2023-07-29 08:49 | W.PM.OBPNV1 ---
Date of service: 07/29/23 Time of Service: 08:30 Assessment and Plan Assessment and plan (1) hemorrhage, delivered, current hospitalization: Status: Acute Assessment and plan: 1. Aicha is feeling well today and is hoping to go home today 2. Plans close follow up by her home [facility] and will be seen by physcians here as needed as well. 3. has vasectomy and she does not plan further surrogacy . 4. Will return as scheduled by physicians. I reviewed that the midwives at [facility] are available to her as needed as well. KH Exam Physical Exam Vital signs: Temp Pulse Resp BP Pulse Ox 98.1 F 89 16 113/64 98 07/29/23 07:35 07/29/23 07:35 07/29/23 07:35 07/29/23 07:35 07/29/23 07:35 Vital Signs Reviewed: Yes Constitutional Constitutional: no acute distress HEENT Exam HEENT Exam: Normal (is looking forward to having IV access removed this morning) Neck Exam Neck Exam: Normal (IV site intact.) Respiratory Exam Respiratory Exam: Normal (denies SOB) Cardiovascular Exam Cardiovascular Exam: Normal Fundal Exam Comment: deferred to Physician assessment, this is social rounds by CNM Extremities Exam Comment: reports minimal bleeding and cramping Results Hemoglobin/Hematocrit: Hgb 8.3 g/dL (11.2-15.7) L D 07/29/23 06:45 Hct 25.4 % (36.0-46.0) L 07/29/23 06:45 Abnormal Lab Findings: Abnormal Labs 07/28/23 07/28/23 07/29/23 03:47 16:24 06:45 WBC 15.43 H 14.48 H RBC 2.99 L Hgb 11.0 L 8.3 L D Hct 33.7 L 25.4 L ABG pH 7.22 L ABG pO2 236 H ABG HCO3 17 L ABG Total CO2 18 L ABG O2 Saturation 100 H ABG Base Excess -11 L Sodium 134 L Carbon Dioxide 19.6 L Anion Gap 11.4 H Glucose 143 H Calcium 7.8 L Total Protein 4.8 L Albumin 1.9 L Crossmatch See Detail Hemorrrhage Note Hemorrhage Recognized Date Hemorrhage Recognized: 07/28/23 Time Hemorrhage Recognized: 14:30 Call for Help Date: 07/28/23 Time: 14:43 2nd RN in Room Date: 07/28/23 Time: 14:20 (3rd RN in the room by [id number] (Jessy Maloney RN)) 2nd RN: Gosia Hassan Provider in Room Date: 07/28/23 Time: 14:47 Provider: Judith Oh RN Pork Cutlet Maker Notified Date: 07/28/23 Time: 14:51 RN Pork Cutlet Maker on Floor Date: 07/28/23 Time: 14:54 Pork Cutlet Maker: Harika Salinas QBL Scale in Room Date: 07/28/23 Time: 14:47 OB Emergency Cart at Bedside Date: 07/28/23 Time: 14:47 Crow Catheter Urinary Catheter Date of Insertion: 07/28/23 (Straight cath for 200 ml urine) Time of insertion: 14:47 Urinary Catheter Size: 14 Inserted by: Kathy Hernández CNM Total Blood Loss for PPH Event Quantitative Blood Loss: 2,000 (prior to going to the OR) Transported to OR Date: 07/28/23 Time: 15:09
--- NOTE | 2023-07-29 11:26 | DSE_ITS ---
Date of service: 07/29/23 Time of Service: 11:26 DS: Diagnosis Discharge Diagnosis (1) hemorrhage, delivered, current hospitalization: Status: Acute (2) resulting from in-vitro fertilization: Status: Acute (3) Surrogate : Status: Acute (4) Vaginal delivery: Status: Acute Discharge Plan Disposition Patient Disposition: Home Condition: Improving Discharge Details Reason For Visit: term labor Admit Date/Time: 07/28/23 03:05 Admit Provider: Janett Hernández Attending Provider: Janett Hernández Primary Care Provider: Sally Owens [facility] Hospital Course: 38 yo @ 39+6 wks, gestational carrier of monique pregnany had PROM @ 2200 on 07/27. Pt presented to in labor and underwent an Oxytocin augmentation of labor and went on to have a spontenous vaginal delivery of a viable male infant. She developed brisk uterine bleeding after delivery of the placenta. Despite medications, fundal massage and manual exploration of the [place] performed at the bedside there continued persistent bleeding. VERA device was inserted into the uterine cavity without improvement in bleeding. Pt was consented for uterine evacuation under anesthesia. A placental fragment was removed from the uterus with and the bleeding subsided. 1300cc EBL. Pt received 2 units PRBC, 1 unit cyroprecipitate and 2 units of FFP in the OR. On return to the she was awake alert and requesting wright catheter be removed. Surgicel that was placed over the cervix was replaced after arrival to the floor. Since that time she has ambulated, voided and tolerated a regular diet. Minimal vaginal bleeding overnight. Pt was discharged to homeon PPD 1. was discharged to the care of his parents.. Home Meds and New Rx's Prescriptions: No Action PNV [id number] 90 mg iron- 1 mg-200 mg capsule 1 cap PO DAILY cholecalciferol (vitamin D3) 10 mcg (400 unit) capsule 10 mcg PO DAILY omega-3 fatty acids 1,000 mg capsule 1,000 mg PO DAILY epinephrine [EpiPen 2-Marcial] 0.3 MG/0.3 ML auto-injector 0.3 mg IM PRN PRN (Reason: Allergy Symptoms) Qty: 1 0RF Discharge Instructions Additional Instructions: Continue to take your vitamin. You will need to take some form of supplemental iron every day for the next 3months. Ibuprofen for uterine cramping. Call the office if you develop a fever over 101.5, heavy vaginal bleeding or abdominal pain not relieved with Ibuprofen or Tylenol. See Dr. Oh in f/u in 2 weeks and Lynn Hernández in 6 weeks. Stand Alone Forms: Post Vaginal Deliver Activity:: Activity as Tolerated Equipment/Supplies:: No Equipment Needed Diet:: As Tolerated Discharge Orders Discharge Orders: Discharge Order (Routine); Ordered 07/29/23 Ordered By: Judith Oh OB:DS Summary Summary Vaginal Delivery Method: Spontaneaous Episiotomy Description: None Laceration Description: None Laceration Extension: N/A complications OB DS: transfusion and retained placenta Contraception Discussed Contraception Discussed: Yes (vasectomy) Contraceptive Plan: Vasectomy, Infant Gender-Baby A: Male weight: 7 lb 10.93 oz Disposition of Baby A: Home Status at Discharge Functional status at discharge: independent ambulation Overall status at discharge: patient is progressing back to baseline Mental Status: mental status grossly normal Speech and Movement: speech and movement normal Mood: congruent mood Affect: normal affect Exam Physical Exam Vital signs: Temp Pulse Resp BP Pulse Ox 98.1 F 89 16 113/64 98 07/29/23 07:35 07/29/23 07:35 07/29/23 07:35 07/29/23 07:35 07/29/23 07:35 Vital Signs Reviewed: Yes Notable Details: Milld tachycardia at rest. Able to perform ADLs. Narrative: PPD1 s/p manual extraction of retained placental fragment. 1300cc EBL. Pt received 2 units PRBC, 1 unit cyroprecipitate and 2 units of FFP in the OR. On return to the she was awake alert and requesting wright catheter be removed. Surgicel that was placed over the cervix was replaced after arrival to the floor. Since that time she has ambulated, voided and tolerated a regular diet. Minimal vaginal bleeding overnight. Pt requesting discharge to home. Constitutional Constitutional: no acute distress HEENT Exam HEENT Exam: Normal Neck Exam Neck Exam: Normal Respiratory Exam Respiratory Exam: Normal Cardiovascular Exam Cardiovascular Exam: Normal Abdominal Exam Abdomen: Tender (suprapubic tenderness - result of vigorous fundal massage.) Fundal Exam Fundus: Below Umbilicus (Uterus firm and mobile. Above umbilicus 2/2 fundal fibroid) Rectal Exam Rectal Exam: Not Done Extremities Exam Extremity Exam: Normal Back/Spine/Pelvis Exam Back Exam: Not Done Skin Exam Skin Exam: Normal Neurological Exam Neurological Exam: Normal Psychiatric Exam Psychiatric Exam: Normal PFSH All Active Problems (Updated 07/29/23 @ 11:27 by Judith Oh MD) Vaginal delivery (Acute) hemorrhage, delivered, current hospitalization (Acute) PROM with onset of labor within 24 hours of rupture (Acute) Group B Streptococcus carrier, +RV culture, currently (Acute) Low lying placenta with hemorrhage, antepartum (Acute) resulting from in-vitro fertilization (Acute) Surrogate (Acute) Advanced maternal age (AMA) in (Acute) (Acute) Medical History (Updated 07/29/23 @ 11:27 by Judith Oh MD) Placental abruption in third trimester Vaginal bleeding during Urinary tract infection during Right ACL tear Ashkenazi Voodoo ancestry Family History Maternal Grandmother Diabetes Paternal Grandmother Diabetes Maternal Grandfather Diabetes Paternal Grandfather Diabetes Father Cancer bladder Social History Smoking/Tobacco Use Status: Never Smoking risk assessment performed?: Yes Alcohol Intake: never Drug use: Occasionally Substance use type: does not use Adopted: No Household members: spouse and children Housing: house Number of Children: 3 Communication Needs: None Do you need help understanding health information?: Never Pets and animals: No Sexually active: Yes Do you think of yourself as: straight/heterosexual Do you feel safe in your relationship?: Yes History History 4 Para 3 Hx # Term Pregnancies 3 Multiple births 0 Hx # Pregnancies 0 Ectopic pregnancies 0 AB induced 0 Hx Number of Living Children 3 AB spontaneous 0 Past Pregnancies Del. 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 Retained placenta. Required exam under anesthesia and manual extraction. 1300cc EBL. 2units PBRC, FFP and 1 unit cryoprecipitate. Submucosal fibroid present. DS: Data Vitals/I&O Vitals and I&O: Vital Signs Temperature 98.1 F 07/29/23 07:35 Temperature Source Oral 07/29/23 07:35 Temperature Source Oral 07/28/23 12:32 Pulse 89 07/29/23 07:35 Pulse Rhythm Regular 07/29/23 07:35 Respiratory Rate 16 07/29/23 07:35 Blood Pressure 113/64 07/29/23 07:35 Pulse Oximetry 98 07/29/23 07:35 Oxygen Delivery Method Room Air 07/29/23 07:35 Oxygen Flow Rate 0 07/29/23 07:35 Pain Level 1 07/29/23 08:58 Comment Pt in tub. Water temp 99f 07/28/23 12:32 Intake & Output 07/28/23 07/28/23 07/29/23 11:59 23:59 11:59 Intake Total 156.234 / 2280.667 2124.433 / 2280.667 Output Total 4750 / 4750 2450 / 2450 Balance 156.234 / -2469.333 -2625.567 / -2469.333 -2450 / -2450 Weight 200 lb Intake: IV 156.234 / 2280.667 2124.433 / 2280.667 Output: Urine 950 / 950 2450 / 2450 Estimated Blood Loss 1500 / 1500 Blood 2300 / 2300 Other: Urine Color Light Jolynn Yellow Urine Appearance Clear Clear Urine Odor None Emesis Description None Voiding Methods Toilet Data Completed and Pending Labs on day of discharge: Labs from last 24 hours 07/29/23 07/28/23 07/28/23 06:45 16:24 03:47 WBC 14.48 H RBC 2.99 L Hgb 8.3 L D 11.0 L Hct 25.4 L 33.7 L MCV 85 MCH 27.8 MCHC 32.7 RDW 12.6 Plt Count 153 MPV 10.1 PT 10.0 INR 1.0 Sample Site Arterial Line ABG Sample Site Cancelled ABG pH 7.22 L ABG pCO2 41 ABG pO2 236 H ABG HCO3 17 L ABG Total CO2 18 L ABG O2 Saturation 100 H ABG Base Excess -11 L Oxygen Liter Flow Cancelled Sodium 139 134 L Potassium 4.3 4.8 Chloride 107 103 Carbon Dioxide 23.3 19.6 L Anion Gap 8.7 11.4 H BUN 16 14 Creatinine 0.9 1.0 Est GFR (CKD-EPI 2020) 83.92 73.95 Glucose 94 143 H Calcium 7.8 L 8.9 Total Bilirubin 0.6 AST 20 ALT 19 Alkaline Phosphatase 60 Total Protein 4.8 L Albumin 1.9 L Patient ABO/Rh B Positive Antibody Screen NEGATIVE Crossmatch See Detail
--- NOTE | 2023-07-30 09:29 | ANES.VASC_ITS ---
Midline Placement Date Performed: 07/28/23 Procedure Time: 15:50 Requesting Provider: Laith Clay Procedure Location: Operating Room Sedation Given (Indicate Dose Given): No Sedation given Patient Mental Status: Performed under general anesthesia Sterility: Hand Hygiene, Surgical Cap, Surgical Mask and Chlorhexidine Laterality: Right Insertion Site: Other (right IJ) Midline Device: PowerGlide Pro 18G Catheter Length: 10 cm Midline Procedure Procedure: Catheter placed without resistance Dressing: Tegaderm Applied and Statlock Applied Blood Return: Present Flushes: Easily Ultrasound: Sterile probe cover and gel used Ultrasound Image Saved?: Yes Number of Attempts (See previous attempts in note section): 1 Procedure Tolerated: No Complications Procedure Outcome: Successful Procedure Comment:: placed not full sterile in the event we needed larger (introducer) access if b leeding continued/got worse. Performed By: Laith Clay
== END 2023-07-29 14:07 | disposition home or self-care (01) | DRG 768 ==
PROVIDERS: Nurse Anesthetist, Certified Registered; Obstetrics & Gynecology Gynecology; Admitting Provider Advanced Practice Midwife; PCP Naturopath; Visit Provider Advanced Practice Midwife
PROC: 10D17Z9 Manual Extraction of Products of Conception, Retained, Via Natural or Artificial Opening (ICD-10-PCS; CPT 59841; principal; 2023-07-28 15:30)
DX: O42.02 Full-term premature rupture of membranes, onset of labor within 24 hours of rupture (principal); Z37.0 Single live birth; O72.1 Other immediate postpartum hemorrhage; O99.824 Streptococcus B carrier state complicating childbirth; Z33.3 Pregnant state, gestational carrier; Z3A.39 39 weeks gestation of pregnancy; O34.13 Maternal care for benign tumor of corpus uteri, third trimester; D25.0 Submucous leiomyoma of uterus
CPT/HCPCS: 59160; 36410; 36415; 80048; 80053; 82803; 82805; 85027; 86850; 86900; 86901; 86920; 88305; 85014; 85018; 85610; 88307; J0690; J2001; J2250; J2405; J2540; J2704; J3010; P9012; P9016; P9059

== ENCOUNTER 2024-02-25 14:27 | Emergency (ER) | payer MEDICAID, SELFPAY ==
[2024-02-25 14:38] VITALS: BP 138/92; PULSE 97; RESP 18; TEMP 36.4; O2SAT 98
--- NOTE | 2024-02-25 14:53 | ED.GENADUL_ITS ---
Discharge Plan Disposition Patient Disposition: Home Condition: Stable Discharge Details Clinical Impression: Laceration of foot, left Primary Care Provider: Sally Owens ED Provider: Nick Styles Home Meds and New Rx's Prescriptions: New cephalexin 500 mg tablet 500 mg PO QID 5 Days Qty: 20 0RF Continued ferrous sulfate 134 mg (27 mg iron) tablet 134 mg PO DAILY cholecalciferol (vitamin D3) 10 mcg (400 unit) capsule 10 mcg PO DAILY omega-3 fatty acids 1,000 mg capsule 1,000 mg PO DAILY epinephrine [EpiPen 2-Marcial] 0.3 MG/0.3 ML auto-injector 0.3 mg IM PRN PRN (Reason: Allergy Symptoms) Qty: 1 0RF Discharge Instructions Instructions: Laceration Repair With Glue ED Additional Instructions: Return in 2 weeks for evaluation to have the suture removed. Return sooner if signs of infection develop such as spreading redness or yellow-white discharge from the wound. HPI General Date/Time Provider Initiated Documentation: 02/25/24 14:35 . Limitations to Documentation: no limitations . Information obtained by: patient . History of Present Illness 38 year old F presents to the emergency department with the chief complaint of left foot injury, described as mild, Patient started experiencing this hour(s) (1) and it has been constant. No relieving factors improve symptom(s), No exacerbating factors reported . Patient notes no other symptoms.. Related Data Home Medications ?Medication ?Instructions ?Recorded ?Confirmed epinephrine 0.3 mg/0.3 mL 0.3 mg (0.3 mL) IM PRN PRN Allergy 04/16/18 02/25/24 injection, auto-injector (EpiPen Symptoms #1 mL 2-Marcial) cholecalciferol (vitamin D3) 10 10 mcg PO DAILY 04/03/23 02/25/24 mcg (400 unit) capsule omega-3 fatty acids 1,000 mg 1,000 mg PO DAILY 04/03/23 02/25/24 capsule ferrous sulfate 134 mg (27 mg 134 mg PO DAILY 08/06/23 02/25/24 iron) tablet cephalexin 500 mg tablet 500 mg PO QID 5 days #20 tabs 02/25/24 Previous Rx's ?Medication ?Instructions ?Recorded epinephrine 0.3 mg/0.3 mL 0.3 mg (0.3 mL) IM PRN PRN Allergy 04/16/18 injection, auto-injector (EpiPen Symptoms #1 mL 2-Marcial) cephalexin 500 mg tablet 500 mg PO QID 5 days #20 tabs 02/25/24 Allergies Allergy/AdvReac Type Severity Reaction Status Date / Time Sulfa (Sulfonamide AdvReac Intermediate Hives Verified 08/06/23 14:20 Antibiotics) BEE STINGS Allergy Unknown Uncoded 08/06/23 14:20 General Stated Complaint: Laceration DANNA: 3 Review of Systems All systems reviewed & are unremarkable except as noted in HPI and below Constitutional Constitutional: Denies chills, Denies fever(s) and Denies weakness Gastrointestinal Gastrointestinal: Denies vomiting Integumentary/Breasts Skin/Breast: Denies rash Neurologic Neurologic: Denies weakness Exam Const General: no acute distress Orientation: alert HENMT Head: normal to inspection Ears: external ears normal General nose exam: external nose normal Mouth: moist mucous membranes Eyes General: appearance normal, both eyes and all related structures Neck Neck: normal visual inspection Resp Effort & Inspection: normal respiratory effort and able to speak in complete sentences Cardio Rate: regular rate Skin General skin exam: no rashes or lesions noted Neuro General: patient alert and patient oriented x3 Extrem General: full ROM and capillary refill normal Psych Mental Status: mental status grossly normal Course Vital Signs Vital signs: Vital Signs Temperature 36.4 C L 02/25/24 14:38 Pulse 97 H 02/25/24 14:38 Respiratory Rate 18 02/25/24 14:38 Blood Pressure 138/92 H 02/25/24 14:38 Pulse Oximetry 98 02/25/24 14:38 Temperature 36.4 C L 02/25/24 14:38 Pulse 97 H 02/25/24 14:38 Respiratory Rate 18 02/25/24 14:38 Blood Pressure 138/92 H 02/25/24 14:38 Pulse Oximetry 98 02/25/24 14:38 Pain Level 0 02/25/24 14:38 Procedures Laceration Laceration 1: Site: lower extremity Side (If applicable): left Size (cm): 1 Description: linear Depth: simple, single layer Local anesthetic: Lidocaine 1% Amount of anesthesia used (mL): 5 Pre-repair: wound explored and irrigated extensively Skin layer closed with: nylon Size (cm): 5-0 Number of sutures: 1 Technique: simple, interrupted Medical Decision Making 38-year-old female comes in with a left foot injury. She was standing on a ceramic cookware and broke and caused a cut to her left fifth fourth and third toes. She did not hit her head or sustain other injuries. Her fifth and third toe have small skin tears that are superficial in the distal plantar surface of the toes, she does have a 1 cm laceration of the distal fourth toe just inferior to the toenail. It appears that there was a skin avulsion as it is a gaping wound. She has full range of motion of the toes with intact sensation and cap refill. The wounds are superficial, do not feel any x-rays indicated she has no bony tenderness. Will plan to close the fourth toe with sutures and likely close the other skin tears with skin adhesive. I placed 1 suture on left fourth toe which the patient did not tolerate despite digital block and injection of lidocaine. Discussed with her continued attempts at anesthesia of the toe or placing Dermabond and letting the toe primarily heal by secondary intention with the 1 suture helping to close the limits sooner. She would prefer not to have any more sutures and understands this may make the wound take longer to heal and also make a bigger scar which she is willing to accept. I will place her on a short course of cephalexin given is on her foot and not fully closed. Stable for discharge, advised to return in 2 weeks for suture removal. Sooner if signs of infection develop. Will also provide her postop shoe to help prevent her from bending her toes. Differential Diagnosis Differential Diagnosis: laceration,skin tear Quality:SDOH Health Related Social Needs: No Data to Display PFSH All Active Problems (Updated 02/25/24 @ 15:16 by Nick Styles MD) Laceration of foot, left (Acute) Encounter for care of lactating mother (Acute) Term delivered (Acute) History of recent blood transfusion (Acute) Uterine fibroid (Acute) Medical History (Updated 02/25/24 @ 15:16 by Nick Styles MD) Retained placental fragment Vaginal delivery hemorrhage, delivered, current hospitalization resulting from in-vitro fertilization Low lying placenta with hemorrhage, antepartum Surrogate Advanced maternal age (AMA) in Placental abruption in third trimester Vaginal bleeding during Urinary tract infection during Right ACL tear Ashkenazi Alevism ancestry Family History Maternal Grandmother Diabetes Paternal Grandmother Diabetes Maternal Grandfather Diabetes Paternal Grandfather Diabetes Father Cancer bladder Social History Smoking/Tobacco Use Status: Never Smoking risk assessment performed?: Yes Alcohol Intake: never Drug use: Occasionally Substance use type: does not use Adopted: No Household members: spouse and children Housing: house Number of Children: 3 Communication Needs: None Do you need help understanding health information?: Never Pets and animals: No Sexually active: Yes Do you think of yourself as: straight/heterosexual Do you feel safe in your relationship?: Yes History History 4 Para 4 Hx # Term Pregnancies 4 Multiple births 0 Hx # Pregnancies 0 Ectopic pregnancies 0 AB induced 0 Hx Number of Living Children 4 AB spontaneous 0 Past Pregnancies Del. 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 Retained placenta. Required exam under anesthesia and manual extraction. 1300cc EBL. 2units PBRC, FFP and 1 unit cryoprecipitate. Submucosal fibroid present.
[2024-02-25] MEDS: Cephalexin 500 MG CAP PO (15:27)
[2024-02-25] MEDS: Acetaminophen 500 MG TAB 1000 MG PO (15:28)
[2024-02-25] MEDS: Bacitracin 1 PACKET TP (15:33)
[2024-02-25 15:39] VITALS: BP 129/73; PULSE 68; RESP 16; O2SAT 100
== END 2024-02-25 15:46 | disposition home or self-care (01) ==
PROVIDERS: Emergency Provider Emergency Medicine; PCP Naturopath
DX: S91.115A Laceration without foreign body of left lesser toe(s) without damage to nail, initial encounter (principal); W25.XXXA Contact with sharp glass, initial encounter; Y93.89 Activity, other specified
CPT/HCPCS: 12001; 99283

== ENCOUNTER 2024-03-10 09:15 | Emergency (ER) | payer MEDICAID, SELFPAY ==
[2024-03-10 09:24] VITALS: BP 116/81; PULSE 75; RESP 16; TEMP 36.6; O2SAT 98
--- NOTE | 2024-03-10 09:28 | W.EDPROG ---
Date of service: 03/10/24 Time of Service: 09:28 Medical Decision Making Patient seen for 1 suture in her left fourth toe on the plantar surface holding an avulsion flap down, the flap has become dried skin and the wound is healed by secondary intent, suture was removed without issue there is no signs of infection patient is neurovascularly intact. EXAM: [address] on plantar L foot Verbal consent was obtained for removal, #1 suture was removed without issue, no signs of infection. Patient counseled to return for signs of infection, keep area clean and bandaged. Medical Records Medical records reviewed: Yes I reviewed the patient's medical records. Quality:[facility] Health Related Social Needs: No Data to Display Discharge Plan Disposition Patient Disposition: Home Condition: Stable Discharge Details Clinical Impression: Visit for suture removal Primary Care Provider: Sally Owens ED Provider: Jon Sheppard Home Meds and New Rx's Prescriptions: No Action ferrous sulfate 134 mg (27 mg iron) tablet 134 mg PO DAILY cholecalciferol (vitamin D3) 10 mcg (400 unit) capsule 10 mcg PO DAILY omega-3 fatty acids 1,000 mg capsule 1,000 mg PO DAILY epinephrine [EpiPen 2-Marcial] 0.3 MG/0.3 ML auto-injector 0.3 mg IM PRN PRN (Reason: Allergy Symptoms) Qty: 1 0RF Discharge Instructions Instructions: Stitches Removal Additional Instructions: You were seen in the emergency department for the single suture holding down the flap of skin on the plantar surface of your left fourth toe, this avulsion flap has turned into dried skin and the wound area appears to be healed well, please keep the area clean and dry and bandaged, you may begin submerging the foot. Please return for signs of infection like increasing redness, red streaking up the leg, developing fluctuant swelling or drainage of pus from the area. Referrals: Sally Owens [Primary Care Provider] - Discharge Data Discharge Date/Time-TO BE ENTERED AT DEPARTURE: 03/10/24 09:35
== END 2024-03-10 09:35 | disposition home or self-care (01) ==
PROVIDERS: Emergency Provider Physician Assistant; PCP Naturopath
DX: Z48.02 Encounter for removal of sutures (principal)
CPT/HCPCS: 00123

== ENCOUNTER 2024-03-10 10:03 | Outpatient (REF) | payer MEDICAID, SELFPAY ==
--- NOTE | 2024-03-10 07:20 | PAPNONF_PTH ---
PATIENT: Aicha Haines LOC: [facility] U#:[id number] AGE/SX: 38/F ROOM: RE03/10/[address]: Sally Owens : 1985 BED: DIS: 03/10/2024 SPEC #: [id number] RECD: 03/10/24 12:46 STATUS: CORTEZ REQ #: [id number] MONSERRAT: 03/10/24 07:[address]: Sally Owens DEPT: [facility] Cytology RECD BY: Connie Hilario Tissues: 1 - BODY FLUID CYTO(SPUTUM/URINE)[facility] Procedures: BODY FLUID CYTO(URINE/SPUTUM) Comments: [id number] (TV=70 ml, 30 ml CYTOLYT ADDED) (REFRIGERATED)
== END 2024-03-10 10:04 | disposition home or self-care (01) ==
LOC: LBN 10:03
PROVIDERS: PCP Naturopath; Visit Provider Naturopath
DX: N39.0 Urinary tract infection, site not specified (principal); Z80.52 Family history of malignant neoplasm of bladder
CPT/HCPCS: 88104